=== PATIENT | female | born 1940 | race Caucasian/White ===

== ENCOUNTER 2018-07-25 15:44 | Inpatient (IN) ==
[2018-07-25] MEDS ORDERED: 0.9 % Sodium Chloride 1,000 ML IVC ONE ×2 (16:30→16:32)
[2018-07-25 16:47] LABS: Basophils % 0.3 %; Eosinophils # 0.1 K/mcL (0.0-0.6); Eosinophils % 0.8 %; Hematocrit 38.7 % (35.3-44.9); Hemoglobin 13.5 g/dL (11.5-15.4); Immature Granulocytes % 0.4 % (0-4); Lymphocytes # 0.4 K/mcL (0.6-4.6); Lymphocytes % 4.2 %; Mean Corpuscular HGB Conc 34.9 g/dL (31.6-35.5); Mean Corpuscular Hemoglobin 33.7 pg (28.0-33.3); Mean Corpuscular Volume 96.5 fL (83.0-100.0); Mean Platelet Volume 10.1 fL (9.4-12.4); Monocytes # 0.4 K/mcL (0.0-1.3); Neutrophils # 9.2 K/mcL (1.6-8.9); Platelet Count 269 K/mcL (140-400); Red Blood Count 4.01 M/mcL (3.82-4.97); Red Cell Distribution Width 11.3 % (11.5-14.5); Segmented Neutrophils % 90.3 %; White Blood Count 10.1 K/mcL (4.3-11.1)
--- NOTE | 2018-07-25 16:54 | Emergency Department Note ---
Disposition Clinical Impression: Drug eruption Disposition: Admitted As Inpatient Referrals: Manolo Lara DO [Primary Care Provider] - Time of Disposition: 16:55 General Adult HPI - General Chief complaint: ED Fever Stated complaint: Fever, chills, S/P Surgery Time Seen by Provider: 07/25/18 16:18 Source: patient Limitations: no limitations Nursing Notes Reviewed: Yes Vital Signs Reviewed: Yes - History of Present Illness HPI Narrative: Attestation note: Patient was seen with the emergency medicine resident/nurse practitioner/physician assistant financial accountant/transitional resident/medical student: Dr. Brad Lamas I have personally performed a face to face evaluation on this patient. I have reviewed and agree with history and physical examination patient management and disposition. I was present for the significant portions of the performance and interpretation of procedures and EKGs. Briefly the salient points of the case are as follows: 70-year-old female presents with fever chills or rash. Patient had a left sided ureteral stone retrieval performed percutaneously through interventional radiology this past Wednesday. Patient states she has been feeling chills achy all over not feeling well. Patient was 101 in the emergency department covered with fine rash that is discrete which in its appearance is consistent with possible drug eruption. Patient was taking Macrobid at the time. We will discontinue that. Patient will get IV fluids screening labs imaging with admission anticipated and urologic consultation. Disposition pending Pain Scale: 0 - Related Data Home Medications Medication Instructions Recorded Confirmed Biotin 1 mg PO DAILY 03/03/17 07/21/18 Levothyroxine [Synthroid] 75 mcg PO 0630 03/03/17 07/21/18 Losartan/HCTZ [Hyzaar 50-12.5 1 tab PO BID 03/03/17 07/21/18 Tablet] Multivitamin [One Daily Essential] 1 tab PO DAILY 03/03/17 07/21/18 Trazodone HCl 50 mg PO HS PRN 03/03/17 07/21/18 Turmeric Root Extract [Turmeric] 500 mg PO DAILY 03/03/17 07/21/18 Aspirin [Lo-Dose Aspirin EC] 81 mg PO DAILY 07/21/18 07/21/18 Potassium Chloride [K-Tab ER] 20 meq PO DAILY 07/21/18 07/21/18 Previous Rx's Medication Instructions Recorded Nitrofurantoin Monohyd/M-Cryst 100 mg PO BID #10 capsule 07/23/18 [Macrobid 100 mg Capsule] Allergies Allergy/AdvReac Type Severity Reaction Status Date / Time Cefaclor [From Ceclor] Allergy Rash Verified 03/03/17 10:45 Cortisone Allergy Rash Verified 03/03/17 10:45 hydrocodone Allergy Rash Verified 03/03/17 10:45 methylprednisolone Allergy Rash Verified 03/03/17 10:45 [From Medrol] nitrofurantoin Allergy Rash Verified 03/03/17 10:45 [From Macrobid] Penicillins [PCN] Allergy Rash Verified 03/03/17 10:45 Sulfa (Sulfonamide Allergy Rash Verified 03/03/17 10:45 Antibiotics) Past Medical History - Past Medical History Medical history: Reports: hypertension, kidney stones Surgical history: Reports: cholecystectomy, orthopedic, other Psychiatric history: Reports: no psych history - Social History Smoking Status: Never smoker Smokeless Tobacco Status: No Alcohol use: Reports: none Drug use: Reports: none Physical Exam - General Limitations: no limitations General appearance: alert Course Vital Signs Temperature 100.9 F H 07/25/18 15:52 Pulse Rate 116 07/25/18 15:52 Respiratory Rate 20 07/25/18 15:52 Blood Pressure 122/81 07/25/18 15:52 O2 Sat by Pulse Oximetry 94 07/25/18 15:52 Temperature 100.9 F H 07/25/18 16:43 Pulse Rate 116 07/25/18 16:43 Respiratory Rate 20 07/25/18 16:43 Blood Pressure 122/81 07/25/18 16:43 O2 Sat by Pulse Oximetry 94 07/25/18 16:43 Oxygen Delivery Oxygen Delivery Room Air
[2018-07-25 16:57] LABS: Bilirubin,Urine Negative (Negative); Blood,Urine Large (Negative); Clarity,Urine Cloudy (Clear); Color,Urine Dark Yellow (Yellow); Glucose,Urine (UA) Normal (Normal); Ketones,Urine Trace mg/dL (Negative); Leukocyte Esterase,Urine Trace (Negative); Nitrite,Urine Positive (Negative); Protein,Urine 30 mg/dL (Neg-Trace); Specific Gravity,Urine 1.014 (1.010-1.025); Urobilinogen,Urine Normal (Normal)
[2018-07-25 16:59] LABS: Bacteria,Urine None Seen per hpf (None-Few); Hyaline Casts,Urine None Seen per lpf (None-Few); RBC,Urine TNTC per hpf (0-3); Squamous Epithelial Cell,Urine Many per lpf (None-Few)
--- NOTE | 2018-07-25 16:59 | Emergency Department Note ---
Disposition Clinical Impression: Drug eruption, Ureteral stone, Decreased thyroid stimulating hormone (TSH) level UTI (urinary tract infection) Qualifiers: Urinary tract infection type: acute cystitis Hematuria presence: without hematuria Qualified Code(s): N30.00 - Acute cystitis without hematuria Disposition: Admitted As Inpatient Referrals: Manolo Lara DO [Primary Care Provider] - Forms: ED Satisfaction Letter Time of Disposition: 19:32 Fever HPI - General Chief Complaint: ED Fever Stated Complaint: Fever, chills, S/P Surgery Time Seen by Provider: 07/25/18 16:18 Source: patient Limitations: no limitations Nursing Notes Reviewed: Yes Vital Signs Reviewed: Yes - History of Present Illness HPI Narrative: 70-year-old female presents emergency department with concern for fever, chills, generalized weakness. Patient reports that last she had an obstructive kidney stone extracted. Stated that throughout the weekend she was not feeling too well. She was prescribed Macrobid for home and has been taking that for the last few days. reports rash on back. Patient denies any dysuria, urinary frequency, urgency. She reports that her urine is actually cleared up. She denies any cough. Pt Subjective Complaint: fever, malaise, weakness - Related Data Home Medications Medication Instructions Recorded Confirmed Biotin 1 mg PO DAILY 03/03/17 07/21/18 Levothyroxine [Synthroid] [place] [address]/03/17 07/21/18 Losartan/HCTZ [Hyzaar 50-12.5 1 tab PO BID 03/03/17 07/21/18 Tablet] Multivitamin [One Daily Essential] 1 tab PO DAILY 03/03/17 07/21/18 Trazodone HCl 50 mg PO HS PRN 03/03/17 07/21/18 Turmeric Root Extract [Turmeric] 500 mg PO DAILY 03/03/17 07/21/18 Aspirin [Lo-Dose Aspirin EC] 81 mg PO DAILY 07/21/18 07/21/18 Potassium Chloride [K-Tab ER] 20 meq PO DAILY 07/21/18 07/21/18 Previous Rx's Medication Instructions Recorded Nitrofurantoin Monohyd/M-Cryst 100 mg PO BID #10 capsule 07/23/18 [Macrobid 100 mg Capsule] Allergies Allergy/AdvReac Type Severity Reaction Status Date / Time Cefaclor [From [facility]] Allergy Rash Verified 03/03/17 10:45 Cortisone Allergy Rash Verified 03/03/17 10:45 hydrocodone Allergy Rash Verified 03/03/17 10:45 methylprednisolone Allergy Rash Verified 03/03/17 10:45 [From Medrol] nitrofurantoin Allergy Rash Verified 03/03/17 10:45 [From Macrobid] Penicillins [PCN] Allergy Rash Verified 03/03/17 10:45 Sulfa (Sulfonamide Allergy Rash Verified 03/03/17 10:45 Antibiotics) All systems ED: reviewed and negative except as stated. Review of Systems: As Per HPI Constitutional: Reports: fever, chills, weakness Cardiovascular: Denies: chest pain Respiratory: Denies: cough, dyspnea Gastrointestinal: Reports: abdominal pain. Denies: nausea, vomiting Genitourinary: Denies: urgency, dysuria, frequency Integumentary: Reports: rash Neurological: Denies: headache Fever PMH - Past Medical History Medical history: Reports: hypertension, kidney stones Surgical history: Reports: cholecystectomy, orthopedic, other Psychiatric history: Reports: no psych history - Social History Smoking Status: Never smoker Alcohol use: Reports: none Drug use: Reports: none Physical Exam - General Limitations: no limitations General appearance: alert - Head Head exam: normocephalic - Eye Eye exam: Present: EOMI - ENT ENT exam: mucous membranes moist - Neck Neck exam: Present: trachea midline - Chest Chest inspection: Present: symmetric chest wall rise - Respiratory Respiratory exam: Present: normal lung sounds bilaterally. Absent: respiratory distress, accessory muscle use - Cardiovascular Cardiovascular exam: Present: normal rhythm, tachycardia, normal heart sounds - Abdominal Exam Abdominal exam: Present: soft, tenderness. Absent: distention, guarding, rebound, rigidity Abdominal tenderness: Present: LLQ, moderate - Extremities Exam Extremities exam: Present: normal capillary refill - Back Exam Back exam: Present: other (Morbilliform rash) - Neurological Exam Neurological exam: Present: alert, oriented X3 - Psychiatric Psychiatric exam: Present: normal affect, normal mood - Skin Skin exam: Present: normal color Course Vital Signs Temperature 100.9 F H 07/25/18 15:52 Pulse Rate 116 07/25/18 15:52 Respiratory Rate 20 07/25/18 15:52 Blood Pressure 122/81 07/25/18 15:52 O2 Sat by Pulse Oximetry 94 07/25/18 15:52 Temperature 100.9 F H 07/25/18 16:43 Pulse Rate 94 07/25/18 18:23 Respiratory Rate 16 07/25/18 18:23 Blood Pressure 132/59 07/25/18 18:23 O2 Sat by Pulse Oximetry 100 07/25/18 18:23 Oxygen Delivery Oxygen Delivery Room Air Fever - MDM Narrative Medical decision making narrative: 78-year-old female presented to emergency department with concern for fever, tachycardia. Patient has met SIRS criteria. Patient will be administered 30 mL/kg and fluids. Obtain lactic acid, blood cultures, CBC, CMP, lipase. Patient had moderate left lower quadrant tenderness upon abdominal exam. We will obtain CT scan of abdomen and pelvis without contrast. Patient had a urinalysis with positive nitrites, leukocyte esterase, blood. I spoke with Dr. Lieberman who stated that he would follow her in the hospital, or manage her sooner if needed. We will currently pending a CT scan at that time. CT scan of the abdomen and pelvis revealed obstructive [address] Lieberman will take patient to surgery. Patient was offered pain medication besides Tylenol, but stated that she did not want it. Heart rate improved to 94 at time of surgery after administration of 2 L of fluids. Lactic acid was normal, and there was no leukocytosis, all of her labs benign. Patient was also administered IV Levaquin after discussion with pharmacist with extensive review of allergy list. In regards to the patient's rash, most likely secondary to drug eruption. Patient with known allergy to Macrobid and was prescribed this medication. We will request close observation of this rash see of drug withdrawal improves it. Patient accepted by Dr. Sevilla. Abdomen/Pelvis CT 07/25/18 16:31 IMPRESSION: A large stone that was present in the left renal pelvis on the comparison exam is no longer present. There is now a 4 mm stone in the distal left ureter with moderate obstructive uropathy. There is peripelvic fat stranding suggesting pyelitis, with bubbles of gas in the left pelvicaliceal system which may be due to an infection by a gas producing organism or recent instrumentation. This may account for gas in the urinary bladder is well D/ / Deven Powell MD / Deven Powell MD Interpreting Provider: Deven Powell MD Chest X-Ray 07/25/18 16:59 IMPRESSION: No acute cardiopulmonary disease. D/ / Dl Hendrix MD / Dl Hendrix MD Interpreting Provider: Dl Hendrix MD - Lab Data Result diagrams: 07/25/18 16:27 07/25/18 16:27 Lab Results 07/25/18 07/25/18 07/25/18 Range/Units 16:27 16:27 16:27 WBC 10.1 (4.3-11.1) K/mcL RBC 4.01 (3.82-4.97) M/mcL Hgb 13.5 D (11.5-15.4) g/dL Hct 38.7 (35.3-44.9) % MCV 96.5 (83.0-100.0) fL MCH 33.7 H (28.0-33.3) pg MCHC 34.9 (31.6-35.5) g/dL RDW 11.3 L (11.5-14.5) % Plt Count 269 (140-400) K/mcL MPV 10.1 (9.4-12.4) fL Immature Gran % 0.4 (0-4) % Seg Neutrophils % 90.3 % Lymphocytes % 4.2 % Monocytes % 4.0 % Eosinophils % 0.8 % Basophils % 0.3 % Neutrophils # 9.2 H (1.6-8.9) K/mcL Lymphocytes # 0.4 L (0.6-4.6) K/mcL Monocytes # 0.4 (0.0-1.3) K/mcL Eosinophils # 0.1 (0.0-0.6) K/mcL Basophils # 0.0 (0.0-0.2) K/mcL Sodium 136 (136-145) mEq/L Potassium 3.6 (3.5-5.1) mEq/L Chloride 102 (98-107) mEq/L Carbon Dioxide 27 (23-29) mEq/L BUN 12 (8-23) mg/dL Creatinine 0.74 (0.60-1.20) mg/dL Est GFR ( Amer) > 60 (> 60) Est GFR (Non-Af Amer) > 60 (> 60) BUN/Creatinine Ratio 16 (6-26) Glucose 118 H (70-105) mg/dL Calculated Osmolality 283 (280-300) Lactic Acid 1.2 (0.5-2.2) mmol/L Calcium 9.8 (8.6-10.3) mg/dL Total Bilirubin 1.1 H (0.3-1.0) mg/dL AST 29 (13-39) Units/L ALT 34 (7-52) Units/L Alkaline Phosphatase 57 (34-104) Units/L Serum Total Protein 7.3 (6.4-8.9) g/dL Albumin 4.2 (3.5-5.7) g/dL Globulin 3.1 (2.4-3.5) g/dL Albumin/Globulin Ratio 1.4 (1.1-2.2) Lipase 18 (11-82) Units/L TSH 0.147 L (0.340-5.600) mcIU/mL Urine Color (Yellow) Urine Clarity (Clear) Urine pH (5.0-8.0) pH Units Ur Specific [place] (1.010-1.025) Urine Protein (Neg-Trace) mg/dL Urine Glucose (UA) (Normal) mg/dL Urine Ketones (Negative) mg/dL Urine Blood (Negative) Urine Nitrite (Negative) Urine Bilirubin (Negative) Urine Urobilinogen (Normal) mg/dL Ur Leukocyte Esterase (Negative) Urine Microscopic RBC (0-3) per hpf Urine Microscopic WBC (0-3) per hpf Ur Squamous Epith Cells (None-Few) per lpf Urine Bacteria (None-Few) per hpf Hyaline Casts (None-Few) per lpf Ur Culture Indicated? (NO) 07/25/18 Range/Units 16:40 WBC (4.3-11.1) K/mcL RBC (3.82-4.97) M/mcL Hgb (11.5-15.4) g/dL Hct (35.3-44.9) % MCV (83.0-100.0) fL MCH (28.0-33.3) pg MCHC (31.6-35.5) g/dL RDW (11.5-14.5) % Plt Count (140-400) K/mcL MPV (9.4-12.4) fL Immature Gran % (0-4) % Seg Neutrophils % % Lymphocytes % % Monocytes % % Eosinophils % % Basophils % % Neutrophils # (1.6-8.9) K/mcL Lymphocytes # (0.6-4.6) K/mcL Monocytes # (0.0-1.3) K/mcL Eosinophils # (0.0-0.6) K/mcL Basophils # (0.0-0.2) K/mcL Sodium (136-145) mEq/L Potassium (3.5-5.1) mEq/L Chloride (98-107) mEq/L Carbon Dioxide (23-29) mEq/L BUN (8-23) mg/dL Creatinine (0.60-1.20) mg/dL Est GFR ( Amer) (> 60) Est GFR (Non-Af Amer) (> 60) BUN/Creatinine Ratio (6-26) Glucose (70-105) mg/dL Calculated Osmolality (280-300) Lactic Acid (0.5-2.2) mmol/L Calcium (8.6-10.3) mg/dL Total Bilirubin (0.3-1.0) mg/dL AST (13-39) Units/L ALT (7-52) Units/L Alkaline Phosphatase (34-104) Units/L Serum Total Protein (6.4-8.9) g/dL Albumin (3.5-5.7) g/dL Globulin (2.4-3.5) g/dL Albumin/Globulin Ratio (1.1-2.2) Lipase (11-82) Units/L TSH (0.340-5.600) mcIU/mL Urine Color Dark Yellow (Yellow) Urine Clarity Cloudy A (Clear) Urine pH 7.0 (5.0-8.0) pH Units Ur Specific [place] 1.014 (1.010-1.025) Urine Protein 30 H (Neg-Trace) mg/dL Urine Glucose (UA) Normal (Normal) mg/dL Urine Ketones Trace H (Negative) mg/dL Urine Blood Large H (Negative) Urine Nitrite Positive A (Negative) Urine Bilirubin Negative (Negative) Urine Urobilinogen Normal (Normal) mg/dL Ur Leukocyte Esterase Trace H (Negative) Urine Microscopic RBC TNTC H (0-3) per hpf Urine Microscopic WBC 5-15 H (0-3) per hpf Ur Squamous Epith Cells Many H (None-Few) per lpf Urine Bacteria None Seen (None-Few) per hpf Hyaline Casts None Seen (None-Few) per lpf Ur Culture Indicated? YES A (NO)
[2018-07-25 17:04] LABS: Alanine Aminotransferase 34 Units/L (7-52); Albumin 4.2 g/dL (3.5-5.7); Albumin/Globulin Ratio 1.4 (1.1-2.2); Alkaline Phosphatase 57 Units/L (34-104); Aspartate Amino Transferase 29 Units/L (13-39); BUN/Creatinine Ratio 16 (6-26); Bilirubin,Total 1.1 mg/dL (0.3-1.0); Blood Urea Nitrogen 12 mg/dL (8-23); Calcium 9.8 mg/dL (8.6-10.3); Carbon Dioxide 27 mEq/L (23-29); Chloride 102 mEq/L (98-107); Globulin 3.1 g/dL (2.4-3.5); Glucose 118 mg/dL (70-105); Lipase 18 Units/L (11-82); Osmolality,Calculated 283 (280-300); Potassium 3.6 mEq/L (3.5-5.1); Sodium 136 mEq/L (136-145); Total Protein 7.3 g/dL (6.4-8.9); eGFR For African Americans > 60 (> 60); eGFR For Non-African Americans > 60 (> 60)
[2018-07-25 17:24] LABS: Thyroid Stimulating Hormone 0.147 mcIU/mL (0.340-5.600)
[2018-07-25] MEDS ORDERED: Levofloxacin 750 MG/150 ML 750 MG/150 ML BAG IVPB ONE (18:20)
--- NOTE | 2018-07-25 18:27 | Anesthesia Evaluation PreOp ---
Date of Encounter: 07/25/18 Time of Encounter: 18:25 - Past History Planned Operation: Cystoscopy/Stent/USE Cardiac History: HTN, Hyperlipidemia, Other (moderate ) Pulmonary History: Denies Any Significant HX COUNT TEAM MEMBER History: Denies Any Significant HX Other Medical History: Thyroid Anesthesia History: No Prior Anesthetic Complications : No Alcohol Use: none Drug use: none Medications and Allergies Biotin 1 mg PO DAILY 03/03/17 [History] Levothyroxine [Synthroid] 75 mcg PO 0630 03/03/17 [History] Losartan/HCTZ [Hyzaar 50-12.5 Tablet] 1 tab PO BID 03/03/17 [History] Multivitamin [One Daily Essential] 1 tab PO DAILY 03/03/17 [History] Trazodone HCl 50 mg PO HS PRN 03/03/17 [History] Turmeric Root Extract [Turmeric] 500 mg PO DAILY 03/03/17 [History] Aspirin [Lo-Dose Aspirin EC] 81 mg PO DAILY 07/21/18 [History] Potassium Chloride [K-Tab ER] 20 meq PO DAILY 07/21/18 [History] Nitrofurantoin Monohyd/M-Cryst [Macrobid 100 mg Capsule] 100 mg PO BID #10 capsule 07/23/18 [Rx] Allergy/AdvReac Type Severity Reaction Status Date / Time Cefaclor [From Ceclor] Allergy Rash Verified 03/03/17 10:45 Cortisone Allergy Rash Verified 03/03/17 10:45 hydrocodone Allergy Rash Verified 03/03/17 10:45 methylprednisolone Allergy Rash Verified 03/03/17 10:45 [From Medrol] nitrofurantoin Allergy Rash Verified 03/03/17 10:45 [From Macrobid] Penicillins [PCN] Allergy Rash Verified 03/03/17 10:45 Sulfa (Sulfonamide Allergy Rash Verified 03/03/17 10:45 Antibiotics) - Meds/Allergy Pre-op Review Medications Reviewed: Yes Allergies Reviewed: Yes Beta Blockers on Current Med List: No Anesthesia Results - Labs 07/25/18 16:27 07/25/18 16:27 Laboratory Tests 07/21/18 07/25/18 07/25/18 10:09 16:27 16:27 Hgb 13.5 D Hct 38.7 Plt Count 269 PT 11.4 INR 1.0 Sodium 136 Potassium 3.6 BUN 12 Creatinine 0.74 Anesthesia Exam O2 Sat Height 1.63 m Height 1.63 m Weight 72.665 kg Weight 72.665 kg O2 Sat by Pulse Oximetry 100 O2 Sat by Pulse Oximetry 94 O2 Sat by Pulse Oximetry 94 Vital Signs Temp Pulse Resp BP Pulse Ox 100.9 F H 116 20 122/81 94 07/25/18 15:52 07/25/18 15:52 07/25/18 15:52 07/25/18 15:52 07/25/18 15:52 Height: 5'4 Weight: 160 lbs NPO (# of Hours): MN Pain Scale: 0 - HEENT Pupil (Motor): Pupils equal, EOMI Mallampati: II Teeth: Normal Oral Opening: Greater than 3 - COUNT TEAM MEMBER LOC: Oriented COUNT TEAM MEMBER Motor: Normal RUE, Normal LUE, Normal RLE, Normal LLE, Normal Face COUNT TEAM MEMBER Sensory: Normal: RUE, LUE, RLE, LLE, Face - Cardiac Rhythm: Regular Murmur: None JVD: No Carotid Bruit: No - Pulmonary Breath Sounds: bilateral Clear Respiratory Effort: Symmetrical Anesthesia Assess/Plan ASA Score: 2 Level of consciousness: Cooperative, Oriented Anesthetic Plan: General Autologous Blood: No Monitoring Plan: Standard Monitors Recovery Plan: PACU (Discussed GA, agrees to proceed)
--- NOTE | 2018-07-25 18:39 | Urology - Consult Note ---
Date of Encounter: 07/25/18 Time of Encounter: 18:37 - Assessment and Plan (1) Left ureteral stone Current Visit: Yes Status: Acute Assessment and plan: Patient taken operating room today for left ureteroscopy and left ureteral stent placement. (2) UTI (urinary tract infection) Current Visit: Yes Status: Acute Assessment and plan: We will place patient on broad-spectrum antimicrobial coverage. Qualifiers: Urinary tract infection type: acute cystitis Hematuria presence: without hematuria Qualified Code(s): N30.00 - Acute cystitis without hematuria Urology CN:HPI Consult date: 07/25/18 Reason for consult Urology: Other (uti with sepsis) Requesting physician: Brad Lamas History of present illness: Kami is a 78-year-old female who recently underwent a left percutaneous nephrolithotomy. Patient felt poorly afterwards. She came to the emergency department this past Wednesday and was treated for UTI. Patient then presented back to the emergency department today where CT scan was performed which showed a left distal ureteral stone as well as air within the left renal collecting system. Patient with positive fever and emergency department. No leukocytosis. Past Med Surg Social Fam HX - Past Medical History Medical history: hypertension, kidney stones Additional medical history: hypothyroidism, OA, Insomnia, Osteopenia, kidney stones Psychiatric history: no psych history - Past Surgical History Surgical History: cholecystectomy, orthopedic, other Additional surgical history: tubal ligation. lithotripsy. laminectomy. oopherectomy. D&C. prolapsed bladder repair - Social History Smoking Status: Never smoker Smokeless Tobacco Status: No Alcohol use: none Drug use: none - Family History Mother Hx Family Cardiac Disorders: Yes (HTN) Hx Family Endocrine Disorder: Yes (DM) Father Hx Family Respiratory Disorders: Yes (COPD) Medications and Allergies Biotin 1 mg PO DAILY 03/03/17 [History] Levothyroxine [Synthroid] 75 mcg PO 0630 03/03/17 [History] Losartan/HCTZ [Hyzaar 50-12.5 Tablet] 1 tab PO BID 03/03/17 [History] Multivitamin [One Daily Essential] 1 tab PO DAILY 03/03/17 [History] Trazodone HCl 50 mg PO HS PRN 03/03/17 [History] Turmeric Root Extract [Turmeric] 500 mg PO DAILY 03/03/17 [History] Aspirin [Lo-Dose Aspirin EC] 81 mg PO DAILY 07/21/18 [History] Potassium Chloride [K-Tab ER] 20 meq PO DAILY 07/21/18 [History] Nitrofurantoin Monohyd/M-Cryst [Macrobid 100 mg Capsule] 100 mg PO BID #10 capsule 07/23/18 [Rx] Allergy/AdvReac Type Severity Reaction Status Date / Time Cefaclor [From Ceclor] Allergy Rash Verified 03/03/17 10:45 Cortisone Allergy Rash Verified 03/03/17 10:45 hydrocodone Allergy Rash Verified 03/03/17 10:45 methylprednisolone Allergy Rash Verified 03/03/17 10:45 [From Medrol] nitrofurantoin Allergy Rash Verified 03/03/17 10:45 [From Macrobid] Penicillins [PCN] Allergy Rash Verified 03/03/17 10:45 Sulfa (Sulfonamide Allergy Rash Verified 03/03/17 10:45 Antibiotics) Review of Systems - Constitutional chills, fever(s) - EENT Nose, mouth and throat: no dizziness - Cardiovascular no chest pain - Respiratory no cough - Gastrointestinal no abdominal pain, no nausea, no vomiting Exam Initial Vital Signs Temp Pulse Resp BP Pulse Ox 100.9 F H 116 20 122/81 94 07/25/18 15:52 07/25/18 15:52 07/25/18 15:52 07/25/18 15:52 07/25/18 15:52 - General physical appearance Present: well developed, well nourished - Eyes Present: PERRL - Neck Present: no masses - Respiratory Present: normal respiratory effort Urology Results - Labs 07/25/18 16:27 07/25/18 16:27 Abnormal lab results MCH 33.7 pg (28.0-33.3) H 07/25/18 16:27 RDW 11.3 % (11.5-14.5) L 07/25/18 16:27 9.2 K/mcL (1.6-8.9) H 07/25/18 16:27 0.4 K/mcL (0.6-4.6) L 07/25/18 16:27 Glucose 118 mg/dL (70-105) H 07/25/18 16:27 1.1 mg/dL (0.3-1.0) H 07/25/18 16:27 TSH 0.147 mcIU/mL (0.340-5.600) L 07/25/18 16:27 Cloudy (Clear) A 07/25/18 16:40 30 mg/dL (Neg-Trace) H 07/25/18 16:40 Trace mg/dL (Negative) H 07/25/18 16:40 Large (Negative) H 07/25/18 16:40 Positive (Negative) A 07/25/18 16:40 Ur Leukocyte Esterase Trace (Negative) H 07/25/18 16:40 TNTC per hpf (0-3) H 07/25/18 16:40 5-15 per hpf (0-3) H 07/25/18 16:40 Ur Squamous Epith Cells Many per lpf (None-Few) H 07/25/18 16:40 Ur Culture Indicated? YES (NO) A 07/25/18 16:40 Diabetes panel 07/25/18 Range/Units 16:27 Sodium 136 (136-145) mEq/L Potassium 3.6 (3.5-5.1) mEq/L Chloride 102 (98-107) mEq/L Carbon Dioxide 27 (23-29) mEq/L BUN 12 (8-23) mg/dL Creatinine 0.74 (0.60-1.20) mg/dL Glucose 118 H (70-105) mg/dL Calcium 9.8 (8.6-10.3) mg/dL AST 29 (13-39) Units/L ALT 34 (7-52) Units/L Alkaline Phosphatase 57 (34-104) Units/L Albumin 4.2 (3.5-5.7) g/dL Thyroid panel 07/25/18 Range/Units 16:27 TSH 0.147 L (0.340-5.600) mcIU/mL Calcium panel 07/25/18 Range/Units 16:27 Calcium 9.8 (8.6-10.3) mg/dL Albumin 4.2 (3.5-5.7) g/dL Pituitary panel 07/25/18 Range/Units 16:27 Sodium 136 (136-145) mEq/L Potassium 3.6 (3.5-5.1) mEq/L Chloride 102 (98-107) mEq/L Carbon Dioxide 27 (23-29) mEq/L BUN 12 (8-23) mg/dL Creatinine 0.74 (0.60-1.20) mg/dL Glucose 118 H (70-105) mg/dL Calcium 9.8 (8.6-10.3) mg/dL TSH 0.147 L (0.340-5.600) mcIU/mL Adrenal panel 07/25/18 Range/Units 16:27 Sodium 136 (136-145) mEq/L Potassium 3.6 (3.5-5.1) mEq/L Chloride 102 (98-107) mEq/L Carbon Dioxide 27 (23-29) mEq/L BUN 12 (8-23) mg/dL Creatinine 0.74 (0.60-1.20) mg/dL Glucose 118 H (70-105) mg/dL Calcium 9.8 (8.6-10.3) mg/dL Total Bilirubin 1.1 H (0.3-1.0) mg/dL AST 29 (13-39) Units/L ALT 34 (7-52) Units/L Alkaline Phosphatase 57 (34-104) Units/L Albumin 4.2 (3.5-5.7) g/dL All other labs normal. Consult Discharge Plan - Plan Referrals: Manolo Lara DO [Primary Care Provider] -
[2018-07-25] MEDS ORDERED: Gentamicin 80 MG/2 ML VIAL ONE (18:42)
[2018-07-25] MEDS ORDERED: Ondansetron 4 MG/2 ML VIAL ONE (18:43)
[2018-07-25] MEDS ORDERED: *HR* FentaNYL (PF) 100 MCG/2 ML VIAL ONE (18:43)
[2018-07-25] MEDS ORDERED: *HR* Propofol 200 MG/20 ML VIAL IVP ONE (18:43)
[2018-07-25] MEDS ORDERED: *HR* Succinylcholine 200 MG/10 ML VIAL IVP ONE (18:43)
[2018-07-25] MEDS ORDERED: *HR* Midazolam HCl 2 MG/2 ML VIAL ONE (18:43)
[2018-07-25] MEDS ORDERED: Dexamethasone 4 MG/ML VIAL ONE (18:43)
[2018-07-25] MEDS ORDERED: *HR* Rocuronium Bromide 50 MG/5 ML VIAL ONE (18:43)
[2018-07-25] MEDS ORDERED: Lidocaine -MPF 2% 2 ML VIAL ONE (18:43)
[2018-07-25] MEDS ORDERED: *HR* PHENYLEPHRINE 1,000 MCG/10 ML SYRINGE IVP ONE (19:02)
[2018-07-25] MEDS ORDERED: Ondansetron 4 MG/2 ML VIAL IVP ONE (19:09)
[2018-07-25] MEDS ORDERED: *HR* OxyCODONE Immed Rel 5 MG TABLET PO PRN ×2 (19:09→22:39)
--- NOTE | 2018-07-25 19:15 | Operative Note ---
Date of procedure: 07/25/18 Pre-op diagnosis: left ureteral stone and sepsis Post-op diagnosis: same Procedure: Left ureteroscopic basket retrieval of stone, left 4.8 x 26 cm ureteral stent placement Anesthesia: GETA Surgeon: Tim Lieberman Was there an commercial lending assistant present: No Estimated blood loss (cc): 0 Specimen: Left ureteral stone not sent for analysis Condition: stable Disposition: PACU Procedure in Detail: Patient was prepped and draped in normal sterile fashion. Timeout procedure performed. I then inserted the semirigid ureteroscope and the patient's bladder. I was able to cannulate the left ureteral orifice were encountered a distal 3-4 mm stone. I then placed a Glidewire into the patient's left kidney. Alongside the wire I was then able to use the basket device and was able to remove the stone in its entirety. I then placed a 4.8 x 26 and meter stent with good curl seen in the left kidney and in the bladder. Strings were left for easy removal in 2-3 days.
[2018-07-25] MEDS ORDERED: Naloxone 0.4 MG/ML INJ IVP PRN (20:53)
[2018-07-25] MEDS ORDERED: *HR* HYDROcodone/Acet 5/325 mg TABLET PO PRN (20:55)
[2018-07-25] MEDS ORDERED: *HR* Belladonna Alkaloids/Opium 30 MG RECTAL SUPPOSITORY RC PRN (20:56)
[2018-07-25] MEDS ORDERED: Ringers Solution, Lactated 1,000 ML IVC SCH (21:00)
--- NOTE | 2018-07-25 21:10 | Anesthesia Evaluation Post Op ---
Date of Encounter: 07/25/18 Time of Encounter: 21:00 - Vital Signs Vital Signs: Vital Signs/O2 Sat/Glucose, Most Current Temp Pulse Resp BP Pulse Ox 07/25/18 20:47 98.2 F 77 18 102/55 95 07/25/18 20:32 76 16 109/57 93 07/25/18 20:17 97.7 F 79 16 91/47 93 07/25/18 20:07 78 16 89/49 94 07/25/18 19:57 76 16 90/52 95 07/25/18 19:47 99.0 F 84 16 95/57 95 07/25/18 19:37 79 18 96/52 100 07/25/18 19:27 81 18 94/55 100 07/25/18 19:17 99.2 F 82 20 87/50 100 07/25/18 18:23 94 16 132/59 100 - Lungs Lungs: Clear Ascult./Percussion - Airway Airway: Non-obstructed - Cardiovascular Regular Rate - Mental Status Mental Status: Alert & Oriented, Answers Appropriately - Pain Pain Scale: 0 - Nausea Vomiting Nausea Vomiting: Not Present - Hydration Hydration: Ice chips - Discharge PostOp Status: Transfer Patient to floor
--- NOTE | 2018-07-25 21:36 | Internal Med History&Physical ---
Date of Encounter: 07/25/18 Time of Encounter: 21:35 Internal Medicine - H&P: HPI Chief complaint: malaise Admitted From: Home Plans for Post Hospital Care: Home History of present illness: Kami Newby is a 78 year old woman who underwent left percutaneous nephrolithotomy on 07/21/18 with nephrostomy tube placement and no surgical complications encountered in immediacy. The tube was removed on postoperative day one without incident and discharged. She came to the emergency room the following day with complaints of nausea, vomiting and hematuria. She was found hypokalemic at 2.9 and her urinalysis was concerning for an infection so she was discharged home with a 5 day course of nitrofurantoin despite a documented allergy to this in the system. She presents to the emergency today complaining of fever, chills, generalized weakness and a new onset rash on her back. She was found hemodynamically stable, lab work within normal limits but with a UA showing nitrites/LE/RBCs. A CT scan showed a 4mm obstructive stone in the distal left ureter with moderate obstructive uropathy, peripelvic fat stranding suggesting pyelitis and bubbles of as in the left pelvicaliceal system. This more likely represents the recent instrumentation more so than an infection by a gas-producing organism based on my interpretation. She was taken to the OR for left ureteroscopic basket retrieval of stone and ureteral stent placement. She is now admitted for further care. Vitals: Reviewed General: Developed woman lying comfortably in bed in no acute distress. Skin: Red non-blanching macular rash noted on lower back and abdomen. HEENT: Dry mucous membranes. Mild conjunctivae pallor. Neck: No lymphadenopathy. No JVD. No carotid bruits. No palpable thyroid. Chest: Normal thoracic expansion. Normal breath sounds. Clear to auscultation. Heart: Normal S1 & S2; rhythmic. No rubs or murmurs. Abdomen: Non-distended, soft and non-tender to palpation. No peritoneal reaction. Extremities: No clubbing, cyanosis or edema. No calf tenderness. Normal distal pulses. Neurological: Awake, alert and oriented to person, place and time. No focal deficits. Psych: Affect appropriate. Assessment/Plan 1. Complicated UTI: Given the concomitant lithiasis with obstruction leading to surgical intervention. Will keep her on systemic antibiotics in the interim pending further culture data. 2. Left hydronephrosis: Stone has now been removed successfully. Will continue to be seen by urology. 3. Drug hypersensitivity rash: She has a listed allergy as a rash yet was still given this medication. She is currently asymptomatic as it is not bothering her or seemingly spreading. Will provide topical steroids, antihistamines and soothing agents as needed. 4. Hypertension: Will resume home medications once reconciled. Past Med Surg Social Fam HX - Past Medical History Medical history: hypertension, kidney stones Additional medical history: hypothyroidism, OA, Insomnia, Osteopenia, kidney stones Psychiatric history: no psych history - Past Surgical History Surgical History: cholecystectomy, orthopedic, other Additional surgical history: tubal ligation. lithotripsy. laminectomy. oopherectomy. D&C. prolapsed bladder repair - Social History Smoking Status: Never smoker Smokeless Tobacco Status: No Alcohol use: none Drug use: none - Family History Mother Hx Family Cardiac Disorders: Yes (HTN) Hx Family Endocrine Disorder: Yes (DM) Father Hx Family Respiratory Disorders: Yes (COPD) Internal Medicine - H&P: Meds Biotin 1 mg PO DAILY 03/03/17 [History] Levothyroxine [Synthroid] 75 mcg PO 0630 03/03/17 [History] Losartan/HCTZ [Hyzaar 50-12.5 Tablet] 1 tab PO BID 03/03/17 [History] Multivitamin [One Daily Essential] 1 tab PO DAILY 03/03/17 [History] Trazodone HCl 50 mg PO HS PRN 03/03/17 [History] Turmeric Root Extract [Turmeric] 500 mg PO DAILY 03/03/17 [History] Aspirin [Lo-Dose Aspirin EC] 81 mg PO DAILY 07/21/18 [History] Potassium Chloride [K-Tab ER] 20 meq PO DAILY 07/21/18 [History] Nitrofurantoin Monohyd/M-Cryst [Macrobid 100 mg Capsule] 100 mg PO BID #10 capsule 07/23/18 [Rx] Allergy/AdvReac Type Severity Reaction Status Date / Time Cefaclor [From [facility]] Allergy Rash Verified 03/03/17 10:45 Cortisone Allergy Rash Verified 03/03/17 10:45 hydrocodone Allergy Rash Verified 03/03/17 10:45 methylprednisolone Allergy Rash Verified 03/03/17 10:45 [From Medrol] nitrofurantoin Allergy Rash Verified 03/03/17 10:45 [From Macrobid] Penicillins [PCN] Allergy Rash Verified 03/03/17 10:45 Sulfa (Sulfonamide Allergy Rash Verified 03/03/17 10:45 Antibiotics) All Systems PM: A 10-system review of systems was performed and is negative for pertinent findings except as documented above in the HPI. - Constitutional Vitals: Temp Pulse Resp BP Pulse Ox 98.2 F 77 18 102/55 95 07/25/18 20:47 07/25/18 20:47 07/25/18 20:47 07/25/18 20:47 07/25/18 20:47 Exam: . Internal Med - H&P Results - Labs CBC & Chem 7: 07/25/18 16:27 07/25/18 16:27 Labs: Short CBC 07/25/18 Range/Units 16:27 WBC 10.1 (4.3-11.1) K/mcL Hgb 13.5 D (11.5-15.4) g/dL Hct 38.7 (35.3-44.9) % Plt Count 269 (140-400) K/mcL Neutrophils # 9.2 H (1.6-8.9) K/mcL BMP 07/25/18 16:27 Sodium 136 Potassium 3.6 Chloride 102 Carbon Dioxide 27 BUN 12 Creatinine 0.74 Glucose 118 H Calcium 9.8 Liver Function 07/25/18 Range/Units 16:27 Total Bilirubin 1.1 H (0.3-1.0) mg/dL AST 29 (13-39) Units/L ALT 34 (7-52) Units/L Alkaline Phosphatase 57 (34-104) Units/L Albumin 4.2 (3.5-5.7) g/dL Urine 07/25/18 Range/Units 16:40 Urine Color Dark Yellow (Yellow) Urine Clarity Cloudy A (Clear) Urine pH 7.0 (5.0-8.0) pH Units Ur Specific [place] 1.014 (1.010-1.025) Urine Protein 30 H (Neg-Trace) mg/dL Urine Glucose (UA) Normal (Normal) mg/dL - Impressions ITS Impressions Fluoroscopy 07/25/18 00:00 IMPRESSION: Intraprocedural fluoroscopic spot images as above. See separate procedure report for more information. D/ / Micaela Majano MD / Micaela Majano MD Interpreting Provider: Micaela Majano MD Abdomen/Pelvis CT 07/25/18 16:31 IMPRESSION: A large stone that was present in the left renal pelvis on the comparison exam is no longer present. There is now a 4 mm stone in the distal left ureter with moderate obstructive uropathy. There is peripelvic fat stranding suggesting pyelitis, with bubbles of gas in the left pelvicaliceal system which may be due to an infection by a gas producing organism or recent instrumentation. This may account for gas in the urinary bladder is well D/ / Deven Powell MD / Deven Powell MD Interpreting Provider: Deven Powell MD Chest X-Ray 07/25/18 16:59 IMPRESSION: No acute cardiopulmonary disease. D/ / Dl Hendrix MD / Dl Hendrix MD Interpreting Provider: Dl Hendrix MD - Time Spent With Patient Total time spent is greater than 50% in coordination of care (as documented) at patient's floor/unit and/or counseling patient: Greater than 35 minutes
[2018-07-25] MEDS ORDERED: Acetaminophen 325 MG TABLET PO PRN (22:37)
[2018-07-25] MEDS ORDERED: traMADol 50 MG TABLET PO PRN (22:40)
[2018-07-25] MEDS ORDERED: Ondansetron 4 MG/2 ML VIAL IVP PRN (22:41)
[2018-07-25] MEDS: *HR* Heparin 5,000 UNIT/ML VIAL SQ SCH (22:57)
[2018-07-26] MEDS: Hyoscyamine SL 0.125 MG TAB.SUBL SL PRN ×2 (01:59→19:29)
[2018-07-26] MEDS: traZODone 50 MG TABLET PO PRN (02:02)
[2018-07-26 05:17] LABS: Basophils % 0.1 %; Hematocrit 34.1 % (35.3-44.9); Immature Granulocytes % 0.4 % (0-4); Lymphocytes # 0.4 K/mcL (0.6-4.6); Lymphocytes % 5.7 %; Mean Corpuscular HGB Conc 34.3 g/dL (31.6-35.5); Mean Corpuscular Hemoglobin 33.1 pg (28.0-33.3); Mean Corpuscular Volume 96.3 fL (83.0-100.0); Mean Platelet Volume 9.7 fL (9.4-12.4); Monocytes # 0.1 K/mcL (0.0-1.3); Monocytes % 1.1 %; Neutrophils # 6.7 K/mcL (1.6-8.9); Platelet Count 249 K/mcL (140-400); Red Blood Count 3.54 M/mcL (3.82-4.97); Red Cell Distribution Width 11.1 % (11.5-14.5); Segmented Neutrophils % 92.7 %; White Blood Count 7.2 K/mcL (4.3-11.1)
[2018-07-26 05:29] LABS: Hemoglobin 11.7 g/dL (11.5-15.4)
[2018-07-26 05:38] LABS: BUN/Creatinine Ratio 24 (6-26); Blood Urea Nitrogen 13 mg/dL (8-23); Calcium 8.9 mg/dL (8.6-10.3); Carbon Dioxide 24 mEq/L (23-29); Chloride 109 mEq/L (98-107); Glucose 161 mg/dL (70-105); Osmolality,Calculated 292 (280-300); Potassium 3.7 mEq/L (3.5-5.1); Sodium 139 mEq/L (136-145); eGFR For African Americans > 60 (> 60); eGFR For Non-African Americans > 60 (> 60)
[2018-07-26] MEDS: *HR* Heparin 5,000 UNIT/ML VIAL SQ SCH ×3 (06:01→21:59)
[2018-07-26] MEDS: Multivit/Ca/Min/Fe/FA 1 TAB TABLET PO SCH (08:14)
[2018-07-26] MEDS: Aspirin Enteric Coated 81 MG Tablet PO SCH (08:15)
[2018-07-26] MEDS: Losartan/HCTZ 50-12.5 TABLET PO SCH (08:15)
[2018-07-26] MEDS: Levofloxacin 500 MG/100 ML 500 MG/100 ML BAG IVPB SCH (08:19)
--- NOTE | 2018-07-26 09:19 | Urology Progress Note ---
<Gilda Shaw N - Last Filed: 07/26/18 09:17> Date of Encounter: 07/26/18 Time of Encounter: 08:20 - Assessment and Plan (1) Left ureteral stone Current Visit: Yes Status: Acute Assessment and plan: Patient is a 78-year-old female who presents one day status post left ureteroscopic basket retrieval of stone, left 4.8 x 26 cm ureteral stent placement and status post left PCNL on 07/21/18. Patient is recovering well postoperatively. We are awaiting final urine culture and sensitivity. (2) UTI (urinary tract infection) Current Visit: Yes Status: Acute Assessment and plan: Patient is a 78-year-old female who presents with a urinary tract infection. Vital signs are stable and afebrile. Urine culture is pending. Patient is receiving IV Levaquin. Qualifiers: Urinary tract infection type: acute cystitis Hematuria presence: without hematuria Qualified Code(s): N30.00 - Acute cystitis without hematuria Progress Note Subjective: feels better Narrative: POD #1. Patient seen and examined standing in room in no apparent distress. Patient is tolerating normal diet without nausea or vomiting. Patient states pain is well-controlled, and she denies any fever, chills, flank pain or incontinence. Patient reports continued urinary frequency and urgency. Objective Initial Vital Signs Temp Pulse Resp BP Pulse Ox 100.9 F H 116 20 122/81 94 07/25/18 15:52 07/25/18 15:52 07/25/18 15:52 07/25/18 15:52 07/25/18 15:52 - General physical appearance Present: well developed, no distress, no pain - Respiratory Present: normal expansion, normal respiratory effort - Abdomen Present: soft, non tender. Absent: distended - Genitourinary Present: other (no cvat ) - Integumentary Present: no abnormal pigmentation, other (flat, erythematous rash on back and torso ). Absent: no rash - Musculoskeletal Present: normal posture - Psychiatric Present: oriented to time, oriented to person, oriented to place, speech is normal, memory intact - Labs 07/26/18 05:06 07/26/18 05:06 Diabetes panel 07/25/18 07/26/18 Range/Units 16:27 05:06 Sodium 136 139 (136-145) mEq/L Potassium 3.6 3.7 (3.5-5.1) mEq/L Chloride 102 109 H (98-107) mEq/L Carbon Dioxide 27 24 (23-29) mEq/L BUN 12 13 (8-23) mg/dL Creatinine 0.74 0.55 L (0.60-1.20) mg/dL Glucose 118 H 161 H (70-105) mg/dL Calcium 9.8 8.9 (8.6-10.3) mg/dL AST 29 (13-39) Units/L ALT 34 (7-52) Units/L Alkaline Phosphatase 57 (34-104) Units/L Albumin 4.2 (3.5-5.7) g/dL Thyroid panel 07/25/18 Range/Units 16:27 TSH 0.147 L (0.340-5.600) mcIU/mL Calcium panel 07/25/18 07/26/18 Range/Units 16:27 05:06 Calcium 9.8 8.9 (8.6-10.3) mg/dL Albumin 4.2 (3.5-5.7) g/dL Pituitary panel 07/25/18 07/26/18 Range/Units 16:27 05:06 Sodium 136 139 (136-145) mEq/L Potassium 3.6 3.7 (3.5-5.1) mEq/L Chloride 102 109 H (98-107) mEq/L Carbon Dioxide 27 24 (23-29) mEq/L BUN 12 13 (8-23) mg/dL Creatinine 0.74 0.55 L (0.60-1.20) mg/dL Glucose 118 H 161 H (70-105) mg/dL Calcium 9.8 8.9 (8.6-10.3) mg/dL TSH 0.147 L (0.340-5.600) mcIU/mL Adrenal panel 07/25/18 07/26/18 Range/Units 16:27 05:06 Sodium 136 139 (136-145) mEq/L Potassium 3.6 3.7 (3.5-5.1) mEq/L Chloride 102 109 H (98-107) mEq/L Carbon Dioxide 27 24 (23-29) mEq/L BUN 12 13 (8-23) mg/dL Creatinine 0.74 0.55 L (0.60-1.20) mg/dL Glucose 118 H 161 H (70-105) mg/dL Calcium 9.8 8.9 (8.6-10.3) mg/dL Total Bilirubin 1.1 H (0.3-1.0) mg/dL AST 29 (13-39) Units/L ALT 34 (7-52) Units/L Alkaline Phosphatase 57 (34-104) Units/L Albumin 4.2 (3.5-5.7) g/dL Consult Discharge Plan - Plan Referrals: Tim Lieberman MD [Partnered Physician] - Manolo Lara DO [Primary Care Provider] - <Tim Lieberman - Last Filed: 07/26/18 10:13> Date of Encounter: 07/26/18 - Assessment and Plan (1) Left ureteral stone Current Visit: Yes Status: Acute (2) UTI (urinary tract infection) Current Visit: Yes Status: Acute Qualifiers: Qualified Code(s): N30.00 - Acute cystitis without hematuria Progress Note Narrative: Patient was seen and examined in the billing. Agree with the plan as written by Gilda Shaw. Patient feeling better, awaiting cultures Objective Initial Vital Signs Temp Pulse Resp BP Pulse Ox 100.9 F H 116 20 122/81 94 07/25/18 15:52 07/25/18 15:52 07/25/18 15:52 07/25/18 15:52 07/25/18 15:52 - Labs 07/26/18 05:06 07/26/18 05:06 Diabetes panel 07/25/18 07/26/18 Range/Units 16:27 05:06 Sodium 136 139 (136-145) mEq/L Potassium 3.6 3.7 (3.5-5.1) mEq/L Chloride 102 109 H (98-107) mEq/L Carbon Dioxide 27 24 (23-29) mEq/L BUN 12 13 (8-23) mg/dL Creatinine 0.74 0.55 L (0.60-1.20) mg/dL Glucose 118 H 161 H (70-105) mg/dL Calcium 9.8 8.9 (8.6-10.3) mg/dL AST 29 (13-39) Units/L ALT 34 (7-52) Units/L Alkaline Phosphatase 57 (34-104) Units/L Albumin 4.2 (3.5-5.7) g/dL Thyroid panel 07/25/18 Range/Units 16:27 TSH 0.147 L (0.340-5.600) mcIU/mL Calcium panel 07/25/18 07/26/18 Range/Units 16:27 05:06 Calcium 9.8 8.9 (8.6-10.3) mg/dL Albumin 4.2 (3.5-5.7) g/dL Pituitary panel 07/25/18 07/26/18 Range/Units 16:27 05:06 Sodium 136 139 (136-145) mEq/L Potassium 3.6 3.7 (3.5-5.1) mEq/L Chloride 102 109 H (98-107) mEq/L Carbon Dioxide 27 24 (23-29) mEq/L BUN 12 13 (8-23) mg/dL Creatinine 0.74 0.55 L (0.60-1.20) mg/dL Glucose 118 H 161 H (70-105) mg/dL Calcium 9.8 8.9 (8.6-10.3) mg/dL TSH 0.147 L (0.340-5.600) mcIU/mL Adrenal panel 07/25/18 07/26/18 Range/Units 16:27 05:06 Sodium 136 139 (136-145) mEq/L Potassium 3.6 3.7 (3.5-5.1) mEq/L Chloride 102 109 H (98-107) mEq/L Carbon Dioxide 27 24 (23-29) mEq/L BUN 12 13 (8-23) mg/dL Creatinine 0.74 0.55 L (0.60-1.20) mg/dL Glucose 118 H 161 H (70-105) mg/dL Calcium 9.8 8.9 (8.6-10.3) mg/dL Total Bilirubin 1.1 H (0.3-1.0) mg/dL AST 29 (13-39) Units/L ALT 34 (7-52) Units/L Alkaline Phosphatase 57 (34-104) Units/L Albumin 4.2 (3.5-5.7) g/dL
--- NOTE | 2018-07-26 09:57 | Internal Med Progress Note ---
<Magy Spear - Last Filed: 07/26/18 13:54> Hospitalist Progress Note - Encounter Date of Encounter: 07/26/18 Time of Encounter: 09:44 - Subjective Interval History: 78-year-old female with past medical history of recurrent kidney stones, hypertension, hypothyroidism who presented complaining of dysuria, fever, chills. She is s/p left percutaneous nevertheless sodomy on 07/21/2018 with nephrostomy to placement that have since been removed. Hospital course complicated by after discharge she returned to ED next day with fever, chills, hematuria, amd UTI for which she received nitrofurantoin despite listed as a allergy discharged home. Patient returned to ED on 07/25/2018 complaining a fever, chills, dysuria, diffuse rash on back. Abdomen/pelvis CT demonstrating 4 mm stone and distal left ureter with moderate obstructive uropathy. Peripelvic fat stranding suggestive of pyelitis is with bubbles of gas that could be infe ctious gas produced by organism or due to recent instrumentation. This is most likely due to recent instrumentation. Patient was taken to the OR on 07/25/2018 for left ureteroscopic basket retrieval of stone and ureteral stent placement. Started on antibiotics. Today, the patient is resting comfortably in the bed she is alert and oriented times 3 in no acute distress. She denies fever, chills, back pain, hematuria, shortness of breath, chest pain. She does admit to urinary frequency and dys uria still. She is requesting something for the dysuria. She has no other complaints. She is tolerating oral intake while. - Exam Vitals: Temp Pulse Resp BP Pulse Ox 98.5 F 65 14 140/78 97 07/26/18 06:55 07/26/18 06:55 07/26/18 06:55 07/26/18 06:55 07/26/18 08:05 Exam: Gen.: Vitals noted. No acute distress. AAOx3 HEENT: oropharynx clear, Normocephalic, atraumatic Cardiac: RRR, grade 4 systolic murmur, +S1/S2 Pulmonary: CTA bilaterally, no wheezes, rales or rhonchi, equal chest expansion Abdomen: soft, nontender, Bowel sounds noted, no guarding Back: Nontender throughout, postsurgical incision appears clean and intact. Diffuse macular rash on back. MSK: ROM intact, no joint swelling noted Extremities: no BLE edema, nontender calf, no cyanosis or clubbing Neuro: A&Ox3, moves all extremities, no focal deficits Psych: Appropriate mood and behavior - Assessment and Plan (1) Complicated UTI (urinary tract infection) Current Visit: Yes Status: Acute Assessment and Plan: Complicated urinary tract infection secondary to recent urological procedure. s/p left percutaneous nevertheless sodomy on 07/21/2018 with nephrostomy to placement that have since been removed. History of recurrent kidney stones. -Afebrile, WBC WNL, hemodynamically stable -urinalysis demonstrating nitrite, leukocyte esterase, WBC -blood culture pending -Abdomen/pelvis CT demonstrating 4 mm stone and distal left ureter with moderate obstructive uropathy. Peripelvic fat stranding suggestive of pyelitis is with bubbles of gas that could be infectious gas produced by organism or due to recent instrumentation. Most likely secondary to recent instrumentation. -patient reports dysuria in urinary frequency. She denies fever, chills, hematuria. Plan -continue IV Levaquin day 1 -await urine culture sensitivity -await blood culture -urology following -belladonna ordered for dysuria -stop IV fluids (2) Left ureteral stone Current Visit: Yes Status: Acute Assessment and Plan: Patient was taken to the OR on 07/25/2018 for left ureteroscopic basket retrieval of stone and ureteral stent placement. -Abdomen/pelvis CT demonstrating 4 mm stone and distal left ureter with moderate obstructive uropathy. Peripelvic fat stranding suggestive of pyelitis is with bubbles of gas that could be infectious gas produced by organism or due to recent instrumentation. Most likely secondary to recent instrumentation. -Urology following and managing. (3) Hydronephrosis, left Current Visit: Yes Status: Acute Assessment and Plan: Secondary to left ureteral stone -Abdomen/pelvis CT demonstrating 4 mm stone and distal left ureter with moderate obstructive uropathy. Peripelvic fat stranding suggestive of pyelitis is with bubbles of gas that could be infectious gas produced by organism or due to recent instrumentation. -Patient was taken to the OR on 07/25/2018 for left ureteroscopic basket retrieval of stone and ureteral stent placement. -Plan as above (4) Decreased thyroid stimulating hormone (TSH) level Current Visit: Yes Status: Acute Assessment and Plan: Patient is history of hyperthyroidism taking levothyroxine 75 mg. -TSH 0.147 which is low. -Will check patient's T4 as she may need a lower dose of levothyroxine. -Will hold levothyroxine for now (5) Drug eruption Current Visit: Yes Status: Acute Assessment and Plan: Most likely drug reaction to nitrofurantoin. -Patient was given nitrofurantoin despite it being listed as an allergy a couple days ago for UTI when she presented to the ED a couple days ago. She took 2 doses of the nitrofurantoin. On admission to the ED it was noted she had a diffuse macular rash on her back. She denies shortness of breath or itchiness. -Rash on back is diffusely macular and appears faded. She denies itchiness. -Will continue to monitor. -Will not give nitrofurantoin. (6) DVT prophylaxis Current Visit: Yes Status: Acute Assessment and Plan: Heparin SQ (7) Hypertension Current Visit: Yes Status: Acute Assessment and Plan: History of hypertension taking losartan/hydrocothiazide -blood pressure stable -continue home medication - Time Spent with Patient Total time spent is greater than 50% in coordination of care (as documented) at patient's floor/unit and/or counseling patient: Internal Medicine: Result - Labs CBC & Chem 7: 07/26/18 05:06 07/26/18 05:06 Labs: Short CBC 07/25/18 07/26/18 Range/Units 16:27 05:06 WBC 10.1 7.2 (4.3-11.1) K/mcL Hgb 13.5 D 11.7 D (11.5-15.4) g/dL Hct 38.7 34.1 L (35.3-44.9) % Plt Count 269 249 (140-400) K/mcL Neutrophils # 9.2 H 6.7 (1.6-8.9) K/mcL BMP 07/25/18 07/26/18 16:27 05:06 Sodium 136 139 Potassium 3.6 3.7 Chloride 102 109 H Carbon Dioxide 27 24 BUN 12 13 Creatinine 0.74 0.55 L Glucose 118 H 161 H Calcium 9.8 8.9 Liver Function 07/25/18 Range/Units 16:27 Total Bilirubin 1.1 H (0.3-1.0) mg/dL AST 29 (13-39) Units/L ALT 34 (7-52) Units/L Alkaline Phosphatase 57 (34-104) Units/L Albumin 4.2 (3.5-5.7) g/dL Urine 07/25/18 Range/Units 16:40 Urine Color Dark Yellow (Yellow) Urine Clarity Cloudy A (Clear) Urine pH 7.0 (5.0-8.0) pH Units Ur Specific [place] 1.014 (1.010-1.025) Urine Protein 30 H (Neg-Trace) mg/dL Urine Glucose (UA) Normal (Normal) mg/dL - Impressions Impressions Fluoroscopy 07/25/18 00:00 IMPRESSION: Intraprocedural fluoroscopic spot images as above. See separate procedure report for more information. D/ / Micaela Majano MD / Micaela Majano MD Interpreting Provider: Micaela Majano MD Abdomen/Pelvis CT 07/25/18 16:31 IMPRESSION: A large stone that was present in the left renal pelvis on the comparison exam is no longer present. There is now a 4 mm stone in the distal left ureter with moderate obstructive uropathy. There is peripelvic fat stranding suggesting pyelitis, with bubbles of gas in the left pelvicaliceal system which may be due to an infection by a gas producing organism or recent instrumentation. This may account for gas in the urinary bladder is well D/ / Deven Powell MD / Deven Powell MD Interpreting Provider: Deven Powell MD Chest X-Ray 07/25/18 16:59 IMPRESSION: No acute cardiopulmonary disease. D/ / Dl Hendrix MD / Dl Hendrix MD Interpreting Provider: Dl Hendrix MD Consult Discharge Plan - Plan Referrals: Tim Lieberman MD [Partnered Physician] - Manolo Lara DO [Primary Care Provider] - <Nan Castro - Last Filed: 07/26/18 22:48> Hospitalist Progress Note - Encounter Date of Encounter: 07/26/18 - Exam Vitals: Temp Pulse Resp BP Pulse Ox 98.1 F 67 15 105/52 97 07/26/18 19:46 07/26/18 19:46 07/26/18 19:46 07/26/18 19:46 07/26/18 19:46 - Assessment and Plan (1) Drug eruption Current Visit: Yes Status: Acute (2) Left ureteral stone Current Visit: Yes Status: Acute (3) Decreased thyroid stimulating hormone (TSH) level Current Visit: Yes Status: Acute (4) Complicated UTI (urinary tract infection) Current Visit: Yes Status: Acute (5) Hydronephrosis, left Current Visit: Yes Status: Acute (6) DVT prophylaxis Current Visit: Yes Status: Acute (7) Hypertension Current Visit: Yes Status: Acute - Time Spent with Patient Total time spent is greater than 50% in coordination of care (as documented) at patient's floor/unit and/or counseling patient: Internal Medicine: Result - Labs CBC & Chem 7: 07/26/18 05:06 07/26/18 05:06 Labs: Short CBC 07/26/18 Range/Units 05:06 WBC 7.2 (4.3-11.1) K/mcL Hgb 11.7 D (11.5-15.4) g/dL Hct 34.1 L (35.3-44.9) % Plt Count 249 (140-400) K/mcL Neutrophils # 6.7 (1.6-8.9) K/mcL BMP 07/26/18 05:06 Sodium 139 Potassium 3.7 Chloride 109 H Carbon Dioxide 24 BUN 13 Creatinine 0.55 L Glucose 161 H Calcium 8.9 - Attending Attestation I examined this patient and my medical decision-making was reviewed with the Resident Physician. I agree with the documented findings, disposition and treatment plan as described except to the extent set forth below.
[2018-07-27 01:12] LABS: Basophils % 0.1 %; Eosinophils % 0.1 %; Hematocrit 30.3 % (35.3-44.9); Hemoglobin 10.3 g/dL (11.5-15.4); Immature Granulocytes % 0.5 % (0-4); Lymphocytes # 1.2 K/mcL (0.6-4.6); Lymphocytes % 9.7 %; Mean Corpuscular Hemoglobin 32.8 pg (28.0-33.3); Mean Corpuscular Volume 96.5 fL (83.0-100.0); Mean Platelet Volume 10.2 fL (9.4-12.4); Monocytes % 8.5 %; Neutrophils # 9.9 K/mcL (1.6-8.9); Platelet Count 246 K/mcL (140-400); Red Blood Count 3.14 M/mcL (3.82-4.97); Red Cell Distribution Width 11.6 % (11.5-14.5); Segmented Neutrophils % 81.1 %
[2018-07-27 01:13] LABS: White Blood Count 12.2 K/mcL (4.3-11.1)
[2018-07-27 01:29] LABS: BUN/Creatinine Ratio 26 (6-26); Blood Urea Nitrogen 20 mg/dL (8-23); Carbon Dioxide 25 mEq/L (23-29); Chloride 108 mEq/L (98-107); Glucose 130 mg/dL (70-105); Osmolality,Calculated 296 (280-300); Potassium 3.8 mEq/L (3.5-5.1); Sodium 141 mEq/L (136-145); eGFR For African Americans > 60 (> 60); eGFR For Non-African Americans > 60 (> 60)
[2018-07-27] MEDS: *HR* Heparin 5,000 UNIT/ML VIAL SQ SCH ×3 (05:41→20:23)
[2018-07-27] MEDS: Hyoscyamine SL 0.125 MG TAB.SUBL SL PRN (06:45)
--- NOTE | 2018-07-27 08:22 | Internal Med Progress Note ---
<Ariana Cary - Last Filed: 07/27/18 13:42> Hospitalist Progress Note - Encounter Date of Encounter: 07/27/18 - Exam Vitals: Temp Pulse Resp BP Pulse Ox 97.8 F 61 14 116/59 96 07/27/18 11:55 07/27/18 11:55 07/27/18 11:55 07/27/18 11:55 07/27/18 11:55 - Assessment and Plan (1) Drug eruption Current Visit: Yes Status: Acute (2) Left ureteral stone Current Visit: Yes Status: Acute (3) Decreased thyroid stimulating hormone (TSH) level Current Visit: Yes Status: Acute (4) Complicated UTI (urinary tract infection) Current Visit: Yes Status: Acute (5) Hydronephrosis, left Current Visit: Yes Status: Acute (6) DVT prophylaxis Current Visit: Yes Status: Acute (7) Hypertension Current Visit: Yes Status: Acute - Time Spent with Patient Total time spent is greater than 50% in coordination of care (as documented) at patient's floor/unit and/or counseling patient: Internal Medicine: Result - Labs CBC & Chem 7: 07/27/18 00:45 07/27/18 00:45 Labs: Short CBC 07/27/18 Range/Units 00:45 WBC 12.2 H D (4.3-11.1) K/mcL Hgb 10.3 L (11.5-15.4) g/dL Hct 30.3 L (35.3-44.9) % Plt Count 246 (140-400) K/mcL Neutrophils # 9.9 H (1.6-8.9) K/mcL BMP 07/27/18 00:45 Sodium 141 Potassium 3.8 Chloride 108 H Carbon Dioxide 25 BUN 20 Creatinine 0.76 Glucose 130 H Calcium 9.0 Consult Discharge Plan - Plan Referrals: Tim Lieberman MD [Partnered Physician] - 08/15/18 10:45 am Gilda Shaw PAC [Physician Principal Research Economist] - 07/29/18 12:30 pm (Stent pull. Thank you) Prescriptions: Hyoscyamine SL [Levsin SL] 0.125 mg SL TID PRN #[id number] tab.subl PRN Reason: bladder spasms - Attending Attestation I examined this patient and my medical decision-making was reviewed with the Resident Physician Dr Spear. I agree with the documented findings, disposition and treatment plan as described except to the extent set forth below. Ms Newby is admitted with complicated UTI with obstructive nephrolithiasis awake, having bladder spasms and hesitancy. denies fevers, chills, n/v. gen- alert, awake,appears stated age cv- reg rate and rhythm, normal s1,s2 lungs- ctabl, no wheezing, rhonchi or crackles abd- soft, non tender, non distended, + bs neuro- AAOx3 complicated UTI- wbc elevating, afebrile, levquin + vanc, awaiting cx results, prelim gpc L ureteral stone w hydronephrosis s/p 07/25/2018 for left ureteroscopic basket retrieval of stone and ureteral stent placement- urology following low tsh with normal T4- cont synthroid dose and fu with pcp for recheck HTN- cont marco emeds, fu with pcp Sepsis on admission 2/2 UTI as above- resolved further diagnoses and plan as noted by resident <Magy Spear - Last Filed: 07/27/18 14:33> Hospitalist Progress Note - Encounter Date of Encounter: 07/27/18 Time of Encounter: 10:00 - Subjective Interval History: 78-year-old female with past medical history of recurrent kidney stones, hypertension, hypothyroidism who presented complaining of dysuria, fever, chills. She is s/p left percutaneous nevertheless sodomy on 07/21/2018 with n ephrostomy to placement that have since been removed. Hospital course complicated by after discharge she returned to ED next day with fever, chills, hematuria, amd UTI for which she received nitrofurantoin despite listed as a allergy discharged home. Patient returned to ED on 07/25/2018 complaining a fever, chills, dysuria, diffuse rash on back. Abdomen/pelvis CT demonstrating 4 mm stone and distal left ureter with moderate obstructive uropathy. Peripelvic fat stranding suggestive of pyelitis is with bubbles of gas that could be infectious gas produced by organism or due to recent instrumentation. This is most likely due to recent instrumentation. Patient was taken to the OR on 07/25/2018 for left ureteroscopic basket retrieval of stone and ureteral stent placement. Started on antibiotics. Today, the patient's resting comfortably sitting in her chair. She admits to continue dysuria and urinary frequency. she denies fever, chills, chest pain, shortness of breath, back pain. She is looking for to be discharged once antibiotics can be determined. - Exam Vitals: Temp Pulse Resp BP Pulse Ox 98.0 F 64 16 137/70 98 07/27/18 07:27 07/27/18 07:27 07/27/18 07:27 07/27/18 07:27 07/27/18 07:27 Exam: Gen.: Vitals noted. No acute distress. AAOx3 HEENT: oropharynx clear, Normocephalic, atraumatic Cardiac: RRR, grade 4 systolic murmur, +S1/S2 Pulmonary: CTA bilaterally, no wheezes, rales or rhonchi, equal chest expansion Abdomen: soft, nontender, Bowel sounds noted, no guarding Back: Nontender throughout, postsurgical incision appears clean and intact. Diffuse macular rash on back. Extremities: no BLE edema, nontender calf, no cyanosis or clubbing Neuro: A&Ox3, moves all extremities, no focal deficits Psych: Appropriate mood and behavior - Assessment and Plan (1) Complicated UTI (urinary tract infection) Current Visit: Yes Status: Acute Assessment and Plan: Complicated urinary tract infection secondary to recent urological procedure. s/p left percutaneous nevertheless sodomy on 07/21/2018 with nephrostomy to placement that have since been removed. History of recurrent kidney stones. -Afebrile, hemodynamically stable -WBC increased 12.2 -urinalysis demonstrating nitrite, leukocyte esterase, WBC -blood culture pending -urine culture growing GPC -Abdomen/pelvis CT demonstrating 4 mm stone and distal left ureter with moderate obstructive uropathy. Peripelvic fat stranding suggestive of pyelitis is with bubbles of gas that could be infectious gas produced by organism or due to recent instrumentation. Most likely secondary to recent instrumentation. -patient reports continued dysuria in urinary frequency. She denies fever, chills, hematuria. Plan -start IV vancomycin due to urine culture growing GPC -continue IV Levaquin day 2 -await urine culture sensitivity for final antibiotic selection for discharge -await blood culture -Toradol and tramadol PRN pain -urology following and recommend await urine culture sensitivity and a continue antibiotics for 10 to 14 days -pyridium ordered for dysuria -patient did not want belladonna rectal suppository (2) Left ureteral stone Current Visit: Yes Status: Acute Assessment and Plan: Patient was taken to the OR on 07/25/2018 for left ureteroscopic basket retrieval of stone and ureteral stent placement. -Abdomen/pelvis CT demonstrating 4 mm stone and distal left ureter with moderate obstructive uropathy. Peripelvic fat stranding suggestive of pyelitis is with bubbles of gas that could be infectious gas produced by organism or due to recent instrumentation. Most likely secondary to recent instrumentation. -Urology following and managing. (3) Hydronephrosis, left Current Visit: Yes Status: Acute Assessment and Plan: Secondary to left ureteral stone -Abdomen/pelvis CT demonstrating 4 mm stone and distal left ureter with moderate obstructive uropathy. Peripelvic fat stranding suggestive of pyelitis is with bubbles of gas that could be infectious gas produced by organism or due to recent instrumentation. -Patient was taken to the OR on 07/25/2018 for left ureteroscopic basket retrieval of stone and ureteral stent placement. -Plan as above (4) Decreased thyroid stimulating hormone (TSH) level Current Visit: Yes Status: Acute Assessment and Plan: Patient is history of hyperthyroidism taking levothyroxine 75 mg. -TSH 0.147 which is low. -T4 1.49 -Continue levothyroxine -will have patient follow-up with her PCP on subacute hyperthyroidism with low TSH and normal T4 (5) Drug eruption Current Visit: Yes Status: Acute Assessment and Plan: Most likely drug reaction to nitrofurantoin. -Patient was given nitrofurantoin despite it being listed as an allergy a couple days ago for UTI when she presented to the ED a couple days ago. She took 2 doses of the nitrofurantoin. On admission to the ED it was noted she had a diffuse macular rash on her back. She denies shortness of breath or itchiness. -Rash on back is diffusely macular and appears faded. She denies itchiness. -Will continue to monitor. -Will not give nitrofurantoin. (6) Hypertension Current Visit: Yes Status: Acute Assessment and Plan: History of hypertension taking losartan/hydrocothiazide -blood pressure stable -continue home medication (7) DVT prophylaxis Current Visit: Yes Status: Acute Assessment and Plan: Heparin SQ - Time Spent with Patient Total time spent is greater than 50% in coordination of care (as documented) at patient's floor/unit and/or counseling patient: Internal Medicine: Result - Labs CBC & Chem 7: 07/27/18 00:45 07/27/18 00:45 Labs: Short CBC 07/27/18 Range/Units 00:45 WBC 12.2 H D (4.3-11.1) K/mcL Hgb 10.3 L (11.5-15.4) g/dL Hct 30.3 L (35.3-44.9) % Plt Count 246 (140-400) K/mcL Neutrophils # 9.9 H (1.6-8.9) K/mcL BMP 07/27/18 00:45 Sodium 141 Potassium 3.8 Chloride 108 H Carbon Dioxide 25 BUN 20 Creatinine 0.76 Glucose 130 H Calcium 9.0
[2018-07-27] MEDS: Levofloxacin 500 MG/100 ML 500 MG/100 ML BAG IVPB SCH (08:55)
[2018-07-27] MEDS: Aspirin Enteric Coated 81 MG Tablet PO SCH (08:56)
[2018-07-27] MEDS: Losartan/HCTZ 50-12.5 TABLET PO SCH (08:56)
[2018-07-27] MEDS: Multivit/Ca/Min/Fe/FA 1 TAB TABLET PO SCH (08:57)
--- NOTE | 2018-07-27 09:22 | Urology Progress Note ---
<Gilda Shaw N - Last Filed: 07/27/18 09:19> Date of Encounter: 07/27/18 Time of Encounter: 08:20 - Assessment and Plan (1) Left ureteral stone Current Visit: Yes Status: Acute Assessment and plan: Patient is a 78-year-old female who presents 2 days status post left ureteroscopic basket retrieval of stone, left 4.8 x 26 cm ureteral stent placement and status post left PCNL on 07/21/2018. Patient is recovering well postoperatively but complains of continuous stent discomfort. Patient is aware she will require stent removal on 07/29/2018 at 9 AM. Preliminary urine culture is positive for gram-positive cocci. Patient is receiving IV Levaquin. Urology recommends awaiting final culture and sensitivity report and transitioning patient to culture sensitive antibiotics for 10-14 days. (2) UTI (urinary tract infection) Current Visit: Yes Status: Acute Qualifiers: Urinary tract infection type: acute cystitis Hematuria presence: without hematuria Qualified Code(s): N30.00 - Acute cystitis without hematuria Progress Note Subjective: no new complaints, feels better Narrative: POD #2. Patient seen and examined sitting upright in bed in no apparent distress. Patient is tolerating normal diet without nausea or vomiting. Patient is voiding without difficulty. Patient complains of continued stent discomfort with dysuria, urgency and frequency. Patient denies fever, chills, nausea, vomiting or flank pain. Objective Initial Vital Signs Temp Pulse Resp BP Pulse Ox 100.9 F H 116 20 122/81 94 07/25/18 15:52 07/25/18 15:52 07/25/18 15:52 07/25/18 15:52 07/25/18 15:52 - General physical appearance Present: well developed, no distress, no pain - Respiratory Present: normal expansion, normal respiratory effort - Abdomen Present: soft, non tender. Absent: distended - Genitourinary Present: other (No CVAT) - Integumentary Present: no rash, no abnormal pigmentation - Musculoskeletal Present: normal gait, normal posture - Psychiatric Present: oriented to time, oriented to person, oriented to place, speech is normal, memory intact - Labs 07/27/18 00:45 07/27/18 00:45 Diabetes panel 07/27/18 Range/Units 00:45 Sodium 141 (136-145) mEq/L Potassium 3.8 (3.5-5.1) mEq/L Chloride 108 H (98-107) mEq/L Carbon Dioxide 25 (23-29) mEq/L BUN 20 (8-23) mg/dL Creatinine 0.76 (0.60-1.20) mg/dL Glucose 130 H (70-105) mg/dL Calcium 9.0 (8.6-10.3) mg/dL Calcium panel 07/27/18 Range/Units 00:45 Calcium 9.0 (8.6-10.3) mg/dL Pituitary panel 07/27/18 Range/Units 00:45 Sodium 141 (136-145) mEq/L Potassium 3.8 (3.5-5.1) mEq/L Chloride 108 H (98-107) mEq/L Carbon Dioxide 25 (23-29) mEq/L BUN 20 (8-23) mg/dL Creatinine 0.76 (0.60-1.20) mg/dL Glucose 130 H (70-105) mg/dL Calcium 9.0 (8.6-10.3) mg/dL Adrenal panel 07/27/18 Range/Units 00:45 Sodium 141 (136-145) mEq/L Potassium 3.8 (3.5-5.1) mEq/L Chloride 108 H (98-107) mEq/L Carbon Dioxide 25 (23-29) mEq/L BUN 20 (8-23) mg/dL Creatinine 0.76 (0.60-1.20) mg/dL Glucose 130 H (70-105) mg/dL Calcium 9.0 (8.6-10.3) mg/dL Consult Discharge Plan - Plan Referrals: Tim Lieberman MD [Partnered Physician] - 08/15/18 10:45 am Gilda Shaw PAC [Physician Catalyst Impregnator] - 07/29/18 12:30 pm (Stent pull. Thank you) <Tim Lieberman - Last Filed: 07/27/18 10:44> Date of Encounter: 07/27/18 - Assessment and Plan (1) Left ureteral stone Current Visit: Yes Status: Acute (2) UTI (urinary tract infection) Current Visit: Yes Status: Acute Qualifiers: Urinary tract infection type: acute cystitis Hematuria presence: without hematuria Qualified Code(s): N30.00 - Acute cystitis without hematuria Progress Note Narrative: Patient was seen and examined independently. Agree with the plan as written by Gilda Shaw. Patient with gram-positive growing in her urine. Recommend for 2 weeks of culture specific antibiotics. Patient will follow-up with my office on Wednesday for stent removal. Prescription for Levsin sent to her pharmacy.. Objective Initial Vital Signs Temp Pulse Resp BP Pulse Ox 100.9 F H 116 20 122/81 94 07/25/18 15:52 07/25/18 15:52 07/25/18 15:52 07/25/18 15:52 07/25/18 15:52 - Labs 07/27/18 00:45 07/27/18 00:45 Diabetes panel 07/27/18 Range/Units 00:45 Sodium 141 (136-145) mEq/L Potassium 3.8 (3.5-5.1) mEq/L Chloride 108 H (98-107) mEq/L Carbon Dioxide 25 (23-29) mEq/L BUN 20 (8-23) mg/dL Creatinine 0.76 (0.60-1.20) mg/dL Glucose 130 H (70-105) mg/dL Calcium 9.0 (8.6-10.3) mg/dL Calcium panel 07/27/18 Range/Units 00:45 Calcium 9.0 (8.6-10.3) mg/dL Pituitary panel 07/27/18 Range/Units 00:45 Sodium 141 (136-145) mEq/L Potassium 3.8 (3.5-5.1) mEq/L Chloride 108 H (98-107) mEq/L Carbon Dioxide 25 (23-29) mEq/L BUN 20 (8-23) mg/dL Creatinine 0.76 (0.60-1.20) mg/dL Glucose 130 H (70-105) mg/dL Calcium 9.0 (8.6-10.3) mg/dL Adrenal panel 07/27/18 Range/Units 00:45 Sodium 141 (136-145) mEq/L Potassium 3.8 (3.5-5.1) mEq/L Chloride 108 H (98-107) mEq/L Carbon Dioxide 25 (23-29) mEq/L BUN 20 (8-23) mg/dL Creatinine 0.76 (0.60-1.20) mg/dL Glucose 130 H (70-105) mg/dL Calcium 9.0 (8.6-10.3) mg/dL
[2018-07-27] MEDS ORDERED: Aminoglycoside Consult 1 EACH MC ONE (18:14)
[2018-07-27] MEDS: traZODone 50 MG TABLET PO PRN (20:20)
[2018-07-28 04:16] LABS: Basophils % 0.4 %; Eosinophils # 0.4 K/mcL (0.0-0.6); Eosinophils % 4.9 %; Hematocrit 30.8 % (35.3-44.9); Hemoglobin 10.4 g/dL (11.5-15.4); Immature Granulocytes % 0.8 % (0-4); Lymphocytes % 27.5 %; Mean Corpuscular HGB Conc 33.8 g/dL (31.6-35.5); Mean Corpuscular Hemoglobin 33.7 pg (28.0-33.3); Mean Corpuscular Volume 99.7 fL (83.0-100.0); Mean Platelet Volume 9.7 fL (9.4-12.4); Monocytes # 0.8 K/mcL (0.0-1.3); Monocytes % 10.7 %; Platelet Count 241 K/mcL (140-400); Red Blood Count 3.09 M/mcL (3.82-4.97); Red Cell Distribution Width 11.8 % (11.5-14.5); Segmented Neutrophils % 55.7 %; White Blood Count 7.2 K/mcL (4.3-11.1)
[2018-07-28] MEDS: *HR* Heparin 5,000 UNIT/ML VIAL SQ SCH ×2 (04:55→13:20)
[2018-07-28] MEDS: Losartan/HCTZ 50-12.5 TABLET PO SCH (07:27)
[2018-07-28] MEDS: Multivit/Ca/Min/Fe/FA 1 TAB TABLET PO SCH (07:27)
[2018-07-28] MEDS: Aspirin Enteric Coated 81 MG Tablet PO SCH (07:27)
[2018-07-28] MEDS: Levofloxacin 500 MG/100 ML 500 MG/100 ML BAG IVPB SCH (07:28)
--- NOTE | 2018-07-28 08:06 | Discharge Summary ---
<Magy Spear - Last Filed: 07/28/18 09:51> - NOTES TO OUTPATIENT PROVIDER Notes to Outpatient Provider: Admitted for left ureteral stone and urinary tract infection. Patient to OR on 07/25/2018 for left ureteroscopic basket retrieval of stone and ureteral stent placement. Patient to follow up with urology to [facility] at 12:30 PM for stent removal. Discharged with IV vancomycin (due to type of organism and multiple antibiotic allergies) for total 10 days antibiotic treatment. Home health to administer. TSH noted below and T4 normal. Patient will need follow-up on repeat TSH level. Orders not resulted at time of discharge: Pending orders 07/25/18 XR KUB [XR] Routine 07/25/18 17:19 Culture,Blood [BC] Stat Date of Encounter: 07/28/18 Time of Encounter: 08:06 - Discharge Diagnosis (1) Left ureteral stone Priority: Primary Status: Acute (2) Complicated UTI (urinary tract infection) Priority: Secondary Status: Acute (3) Hydronephrosis, left Priority: Secondary Status: Acute (4) Decreased thyroid stimulating hormone (TSH) level Priority: Secondary Status: Acute (5) Drug eruption Priority: Secondary Status: Acute (6) DVT prophylaxis Priority: Secondary Status: Acute (7) Hypertension Priority: Secondary Status: Acute Qualifiers: Hypertension type: essential hypertension Qualified Code(s): I10 - Essential (primary) hypertension Hospital course: Ms. Newby is a 78 year old female with past medical history of recurrent kidney stones, hypertension, hypothyroidism who presented complaining of dysuria, fever, chills. She is s/p left percutaneous nephrolithotomy on 07/21/2018 with nephrostomy tube placement that have since been removed. Hospital course complicated by after discharge she returned to ED next day with fever, chills, hematuria, amd UTI for which she received nitrofurantoin despite listed as a allergy discharged home. Patient returned to ED on 07/25/2018 complaining a fever, chills, dysuria, diffuse rash on back. Abdomen/pelvis CT demonstrating 4 mm stone and distal left ureter with moderate obstructive uropathy. Peripelvic fat stranding suggestive of pyelitis is with bubbles of gas that could be infectious gas produced by organism or due to recent instrumentation. This is most likely due to recent instrumentation. Patient was taken to the OR on 07/25/2018 for left ureteroscopic basket retrieval of stone and ureteral stent placement. Urology continue to follow with the patient in hospital. She was started on IV antibiotics and urine cultures were taken for symptoms insistent with urinary tract infection. Urinalysis demonstrating nitrite, leukocyte esterase, WBC. The patient had a drug reaction likely to nitrofurantoin in which she had a rash that developed on her back I was not itchy. It improved over the course of her hospital stay. Urine culture returned showing enterococcus faecalis. Due to the patient having multiple antibiotic allergies including penicillin she had a be discharged with vancomycin to continue antibiotic course for total of 10 days. housekeeping laundry worker arranged for home health to administer her vancomycin at home. She is to get vancomycin trough on 07/29/2018 prior to vancomycin infusion. She is to follow-up with urology tomorrow in the office on 07/29/2018 for stent removal. Of note, the patient's TSH level 0.147 was low and T4 1.49 normal. Upon discharge she denied fever, chills, dysuria, abdominal pain, hematuria. She stated that her dysuria have resolved when she was taking the pyridium. She was told to follow up with her primary care provider in 1 to 2 weeks. She is alert and oriented times 3 and stated clear understanding of the treatment plan. Discharge discussed with: patient, nurse, social work - Time Spent with Patient Total time spent providing and/or coordinating discharge services: Time spent: Greater than 30 minutes - Discharge Medications Prescriptions: New Hyoscyamine SL [Levsin SL] 0.125 mg SL TID PRN #20 tab.subl PRN Reason: bladder spasms Phenazopyridine [Pyridium] 200 mg PO TID PRN 5 Days #15 tablet PRN Reason: See Comments Vancomycin [Vancocin] 1,000 mg IV ONCE #8 vial Amoxicillin 875 mg PO BID #20 tablet Continued Losartan/HCTZ [Hyzaar 50-12.5 Tablet] 1 tab PO BID Levothyroxine [Synthroid] 75 mcg PO 0630 Turmeric Root Extract [Turmeric] 500 mg PO DAILY Multivitamin [One Daily Essential] 1 tab PO DAILY Biotin 1 mg PO DAILY Potassium Chloride [K-Tab ER] 20 meq PO DAILY Aspirin [Lo-Dose Aspirin EC] 81 mg PO DAILY Trazodone HCl 25 mg PO HS PRN PRN Reason: Sleep Glucosamine Sulfate Dipot Chlr [Glucosamine] 1,000 mg PO DAILY Home Medications: Biotin 1 mg PO DAILY 03/03/17 [History] Levothyroxine [Synthroid] 75 mcg PO 0630 03/03/17 [History] Losartan/HCTZ [Hyzaar 50-12.5 Tablet] 1 tab PO BID 03/03/17 [History] Multivitamin [One Daily Essential] 1 tab PO DAILY 03/03/17 [History] Turmeric Root Extract [Turmeric] 500 mg PO DAILY 03/03/17 [History] Aspirin [Lo-Dose Aspirin EC] 81 mg PO DAILY 07/21/18 [History] Potassium Chloride [K-Tab ER] 20 meq PO DAILY 07/21/18 [History] Glucosamine Sulfate Dipot Chlr [Glucosamine] 1,000 mg PO DAILY 07/27/18 [History] Hyoscyamine SL [Levsin SL] 0.125 mg SL TID PRN #20 tab.subl 07/27/18 [Rx] Trazodone HCl 25 mg PO HS PRN 07/27/18 [History] Amoxicillin 875 mg PO BID #20 tablet 07/28/18 [Rx] Phenazopyridine [Pyridium] 200 mg PO TID PRN 5 Days #15 tablet 07/28/18 [Rx] Vancomycin [Vancocin] 1,000 mg IV ONCE #8 vial 07/28/18 [Rx] Allergies/Adverse Reactions: Allergy/AdvReac Type Severity Reaction Status Date / Time Cefaclor [From Ceclor] Allergy Rash Verified 03/03/17 10:45 Cortisone Allergy Rash Verified 03/03/17 10:45 hydrocodone Allergy Rash Verified 03/03/17 10:45 methylprednisolone Allergy Rash Verified 03/03/17 10:45 [From Medrol] nitrofurantoin Allergy Rash Verified 03/03/17 10:45 [From Macrobid] Penicillins [PCN] Allergy Rash Verified 03/03/17 10:45 Sulfa (Sulfonamide Allergy Rash Verified 03/03/17 10:45 Antibiotics) Date of admission: 07/25/18 20:50 Primary care physician: Manolo Lara DO Consults: 07/25/18 17:33 Consult to Urology [CONS] Stat Consulting Provider: Urology Kyra Reason for Consult: post-op fever, UTI Time Notified: 17:33 Call Completed: Yes Discharging clinician: Ariana Cary Anticipated date of discharge: 07/28/18 - Constitutional Vitals: Temp Pulse Resp BP Pulse Ox 98.0 F 56 18 127/57 94 07/28/18 07:22 07/28/18 07:22 07/28/18 07:22 07/28/18 07:22 07/28/18 07:35 Exam: Gen.: Vitals noted. No acute distress. AAOx3 HEENT: oropharynx clear, Normocephalic, atraumatic Cardiac: RRR, grade 4 systolic murmur, +S1/S2 Pulmonary: CTA bilaterally, no wheezes, rales or rhonchi, equal chest expansion Abdomen: soft, nontender, Bowel sounds noted, no guarding Back: Nontender throughout, postsurgical incision appears clean and intact. Diffuse macular rash on back. Extremities: mild BLE edema, nontender calf, no cyanosis or clubbing Neuro: A&Ox3, moves all extremities, no focal deficits Psych: Appropriate mood and behavior - Patient Status Disposition: Home Health Service Condition: Good Functional capacity at discharge: independent ambulation Overall status at discharge: patient is back to baseline - Ambulatory Orders Ambulatory Orders: Vancomycin,Trough [CHEM] Time Frame: 1 Day, Facility: [facility], Location: Home Health Services - Discharge Instructions Instructions: Kidney Stones (DC), Percutaneous Nephrolithotomy (DC), Urinary Tract Infection in Women (DC), Hydronephrosis (DC) Follow Up With: Tim Lieberman MD [Partnered Physician] - 08/15/18 10:45 am Manolo Lara DO [Primary Care Provider] - (Web request. Office will call with date and time of appointment. Thank you) Additional Instructions: - Home Health will remove ureter stent 07/29 during IV infusion home visit. -Finish taking antibiotic to completion for urinary tract infection. Take pyridium and ibuprofen as needed for burning with urination and pain. -Follow-up with her primary care provider and 1 to 2 weeks. You will need TSH (thyroid level) level rechecked and next appointment. -Return to the hospital should you develop fever, chills, worsen painful urination, blood in urine - Diet and Activity Activity: resume usual activities as tolerated Diet: advance to your usual diet <Ariana Cary - Last Filed: 07/28/18 17:17> Orders not resulted at time of discharge: Pending orders 07/25/18 XR KUB [XR] Routine 07/25/18 17:19 Culture,Blood [BC] Stat Date of Encounter: 07/28/18 - Discharge Diagnosis (1) Drug eruption Status: Acute (2) Left ureteral stone Status: Acute (3) Decreased thyroid stimulating hormone (TSH) level Status: Acute (4) Complicated UTI (urinary tract infection) Status: Acute (5) Hydronephrosis, left Status: Acute (6) DVT prophylaxis Status: Acute (7) Hypertension Status: Acute Qualifiers: Hypertension type: essential hypertension Qualified Code(s): I10 - Essential (primary) hypertension Hospital course: Ms. Newby is a 78 year old female - Time Spent with Patient Total time spent providing and/or coordinating discharge services: Time spent: Greater than 30 minutes (55 min) Date of admission: 07/25/18 20:50 Primary care physician: Manolo Lara DO Consults: 07/25/18 17:33 Consult to Urology [CONS] Stat Consulting Provider: Urology Kyra Reason for Consult: post-op fever, UTI Time Notified: 17:33 Call Completed: Yes 07/28/18 08:57 Consult to Practical Nurse Clinical Coordinator [CONS] Stat Reason for SW Consult: Patient needs IV vancomycin for 8 more days treatment. Arrangements needed for home health infusions. Patient may be discharged today. 07/28/18 09:37 Consult to Invasive Line Access Team [CONS] Routine Reason for Consult: 8 days vancomycin at home Line Type: EPIV 07/28/18 11:47 Consult to Invasive Line Access Team [CONS] Routine Reason for Consult: prison ATBs Line Type: Midline 07/28/18 14:27 Consult to Allergy/Immunology [CONS] Routine Consulting Provider: Allergy Bylas Reason for Consult: eval pcn allergy Call Completed: Yes - Constitutional Vitals: Temp Pulse Resp BP Pulse Ox 98.2 F 66 18 138/75 98 07/28/18 16:16 07/28/18 16:16 07/28/18 16:16 07/28/18 16:16 07/28/18 16:16 - Attending Attestation I examined this patient and my medical decision-making was reviewed with the Resident Physician Dr Spear. I agree with the documented findings, disposition and treatment plan as described except to the extent set forth below. Ms Newby is admitted with complicated UTI with obstructive nephrolithiasis. She is stable for dc to home. awake, feeling well and eager for dc. no bladder spasms, pain or dysuria. no fevers or chills. gen- alert, awake,appears stated age cv- reg rate and rhythm, normal s1,s2 lungs- ctabl, no wheezing, rhonchi or crackles abd- soft, non tender, non distended, + bs neuro- AAOx3 update to resident documentation Urology consulted Allergy to allergy test pcn inpt after Dr Lieberman d/w Dr Coates other potential abx recs Dr Ping Lieberman completed allergy testing inpt. She will not require outpt vanc and will go home with pcn to complete course. Will have stent removed by urology as previously scheduled outpt tomorrow complicated UTI- urology has d/w ID and plan is for pcn outpt with allergy testing completed inpt prior to dc to avoid outpt vancomycin being required, abx were limited given her allergy hx L ureteral stone w hydronephrosis s/p 07/25/2018 for left ureteroscopic basket retrieval of stone and ureteral stent placement- urology outpt 07/29 for stent removal HTN- cont home meds, fu with pcp Sepsis on admission 2/2 UTI as above- resolved further diagnoses and plan as noted by resident time spent on dc 55 min
--- NOTE | 2018-07-28 08:39 | Urology Progress Note ---
<Gilda Shaw N - Last Filed: 07/28/18 08:36> Date of Encounter: 07/28/18 Time of Encounter: 08:15 - Assessment and Plan (1) Left ureteral stone Current Visit: Yes Status: Acute Assessment and plan: Patient is a 78-year-old female who presents 3 days status post left ureteroscopic basket retrieval of stone, left 4.8 x 26 cm ureteral stent placement and 7 days status post left PCNL. Patient is recovering very well postoperatively and is tolerating the indwelling stent well. Patient is aware she will require stent removal tomorrow, and she will presented to [place] [facility] at 12:30 PM for string stent removal. (2) UTI (urinary tract infection) Current Visit: Yes Status: Acute Assessment and plan: Patient is a 78-year-old female who presents with a urinary tract infection. Urine culture is positive for pansensitive enterococcus. We recommend an additional 10-14 days of oral culture sensitive antibiotics. It is of note, patient experienced allergic reaction to nitrofurantoin. Qualifiers: Urinary tract infection type: acute cystitis Hematuria presence: without hematuria Qualified Code(s): N30.00 - Acute cystitis without hematuria Progress Note Subjective: no new complaints, feels better Narrative: Patient seen and examined sitting upright in bed in no apparent distress. Patient is tolerating normal diet without nausea or vomiting. Patient reports dysuria, urgency and frequency are improved. Patient is taking Azo. Patient denies any fever, chills, flank pain or gross hematuria. Objective Initial Vital Signs Temp Pulse Resp BP Pulse Ox 100.9 F H 116 20 122/81 94 07/25/18 15:52 07/25/18 15:52 07/25/18 15:52 07/25/18 15:52 07/25/18 15:52 - General physical appearance Present: well developed, no distress, no pain - Respiratory Present: normal expansion, normal respiratory effort - Abdomen Present: soft, non tender. Absent: distended - Integumentary Present: no rash, no abnormal pigmentation - Musculoskeletal Present: normal posture - Psychiatric Present: oriented to time, oriented to person, speech is normal, memory intact - Labs 07/28/18 04:05 07/27/18 00:45 Consult Discharge Plan - Plan Instructions: Kidney Stones (DC), Percutaneous Nephrolithotomy (DC), Urinary Tract Infection in Women (DC), Hydronephrosis (DC) Additional Instructions: - Home Health will remove ureter stent 07/29 during IV infusion home visit. -Finish taking antibiotic to completion for urinary tract infection. Take pyridium and ibuprofen as needed for burning with urination and pain. -Follow-up with her primary care provider and 1 to 2 weeks. You will need TSH (thyroid level) level rechecked and next appointment. -Return to the hospital should you develop fever, chills, worsen painful urination, blood in urine Referrals: Tim Lieberman MD [Partnered Physician] - 08/15/18 10:45 am Manolo Lara DO [Primary Care Provider] - (Web request. Office will call with date and time of appointment. Thank you) Prescriptions: Amoxicillin 875 mg PO BID #20 tablet Hyoscyamine SL [Levsin SL] 0.125 mg SL TID PRN #20 tab.subl PRN Reason: bladder spasms Phenazopyridine [Pyridium] 200 mg PO TID PRN 5 Days #15 tablet PRN Reason: See Comments Vancomycin [Vancocin] 1,000 mg IV ONCE #8 vial <Tim Lieberman - Last Filed: 07/28/18 17:27> Date of Encounter: 07/28/18 - Assessment and Plan (1) Left ureteral stone Current Visit: Yes Status: Acute (2) UTI (urinary tract infection) Current Visit: Yes Status: Acute Qualifiers: Urinary tract infection type: acute cystitis Hematuria presence: without hematuria Qualified Code(s): N30.00 - Acute cystitis without hematuria Progress Note Narrative: Patient was seen and examined independently. Agree with the plan as written by Gilda Shaw. I removed the patient's ureteral stent. Patient will be discharged home on amoxicillin as allergy has to to the patient and she is not allergic to penicillin. Objective Initial Vital Signs Temp Pulse Resp BP Pulse Ox 100.9 F H 116 20 122/81 94 07/25/18 15:52 07/25/18 15:52 07/25/18 15:52 07/25/18 15:52 07/25/18 15:52 - Labs 07/28/18 04:05 07/27/18 00:45
--- NOTE | 2018-07-28 09:49 | Physician Discharge Referral ---
<Magy Spear - Last Filed: 07/28/18 09:48> Home Health/Hosp Referral Info Transfer to: Home Health Provider in Charge Post Discharge: PCP - Diagnosis (1) Left ureteral stone Status: Acute (2) Complicated UTI (urinary tract infection) Status: Acute (3) Hydronephrosis, left Status: Acute (4) Decreased thyroid stimulating hormone (TSH) level Status: Acute (5) Drug eruption Status: Acute (6) Hypertension Status: Acute (7) DVT prophylaxis Status: Acute - Respiratory Orders Smoking Cessation: Smoking cessation has been advised. For more information, call the [employer] Quit Line at 0-403-OUXF-NOW. - Diet/Nutrition Diet/Nutrition Orders: Regular - Services Needed Following services are medically necessary services: Nursing, Home Infusion Home Care Orders: Check vancomycin trough on 07/29/2018 prior to infusing vancomycin dose. - Transfer Medications Prescriptions: Amoxicillin 875 mg PO BID #20 tablet Hyoscyamine SL [Levsin SL] 0.125 mg SL TID PRN #20 tab.subl PRN Reason: bladder spasms Phenazopyridine [Pyridium] 200 mg PO TID PRN 5 Days #15 tablet PRN Reason: See Comments Home Medications: Biotin 1 mg PO DAILY 03/03/17 [History] Levothyroxine [Synthroid] 75 mcg PO 0630 03/03/17 [History] Losartan/HCTZ [Hyzaar 50-12.5 Tablet] 1 tab PO BID 03/03/17 [History] Multivitamin [One Daily Essential] 1 tab PO DAILY 03/03/17 [History] Turmeric Root Extract [Turmeric] 500 mg PO DAILY 03/03/17 [History] Aspirin [Lo-Dose Aspirin EC] 81 mg PO DAILY 07/21/18 [History] Potassium Chloride [K-Tab ER] 20 meq PO DAILY 07/21/18 [History] Glucosamine Sulfate Dipot Chlr [Glucosamine] 1,000 mg PO DAILY 07/27/18 [History] Hyoscyamine SL [Levsin SL] 0.125 mg SL TID PRN #20 tab.subl 07/27/18 [Rx] Trazodone HCl 25 mg PO HS PRN 07/27/18 [History] Amoxicillin 875 mg PO BID #20 tablet 07/28/18 [Rx] Phenazopyridine [Pyridium] 200 mg PO TID PRN 5 Days #15 tablet 07/28/18 [Rx] Allergies/Adverse Reactions: Allergy/AdvReac Type Severity Reaction Status Date / Time Cefaclor [From Ceclor] Allergy Rash Verified 03/03/17 10:45 Cortisone Allergy Rash Verified 03/03/17 10:45 hydrocodone Allergy Rash Verified 03/03/17 10:45 methylprednisolone Allergy Rash Verified 03/03/17 10:45 [From Medrol] nitrofurantoin Allergy Rash Verified 03/03/17 10:45 [From Macrobid] Penicillins [PCN] Allergy Rash Verified 03/03/17 10:45 Sulfa (Sulfonamide Allergy Rash Verified 03/03/17 10:45 Antibiotics) Certification: Further, I certify that my clinical findings support that this patient is homebound (i.e. absences from home require considerable and taxing effort and are for medical reasons or scientologist services or infrequently or short duration when for other reasons) because: Homebound Reason: Leaving home requires considerable and taxing effort due to condition Attestation: My signature below is to certify that this patient is under my care and that I, or nurse practitioner, or a physician's showroom sales assistant working with me, has a [id number] encounter with this patient. <Ariana Cary - Last Filed: 07/29/18 07:27> - Diagnosis (1) Drug eruption Status: Acute (2) Left ureteral stone Status: Acute (3) Decreased thyroid stimulating hormone (TSH) level Status: Acute (4) Complicated UTI (urinary tract infection) Status: Acute (5) Hydronephrosis, left Status: Acute (6) DVT prophylaxis Status: Acute (7) Hypertension Status: Acute - Respiratory Orders Smoking Cessation: Smoking cessation has been advised. For more information, call the [place] [employer] Quit Line at 0-828-VUFS-NOW. Certification: Further, I certify that my clinical findings support that this patient is homebound (i.e. absences from home require considerable and taxing effort and are for medical reasons or scientologist services or infrequently or short duration when for other reasons) because: Attestation: My signature below is to certify that this patient is under my care and that I, or nurse practitioner, or a physician's showroom sales assistant working with me, has a [id number] encounter with this patient.
[2018-07-28] MEDS ORDERED: EPINEPHrine 1 MG/ML VIAL IV PRN (15:07)
[2018-07-28] MEDS ORDERED: methylPREDNISolone 125 MG/2 ML VIAL IVP PRN (15:15)
[2018-07-28] MEDS ORDERED: Penicillin test 1000 units/0.1 ml ID ONE ×2 (15:15→15:30)
[2018-07-28] MEDS ORDERED: Famotidine 20 MG/2 ML VIAL IVP PRN (15:15)
[2018-07-28] MEDS ORDERED: Penicillin test 1000 units/0.1 ml TP ONE ×2 (15:15→15:30)
[2018-07-28] MEDS ORDERED: 0.9 % Sodium Chloride 10 ML PF VIAL TP ONE (15:15)
[2018-07-28] MEDS ORDERED: [UNRECOGNIZED DRUG - OTHER] TP ONE (15:15)
[2018-07-28] MEDS ORDERED: EPINEPHrine 1 MG/ML VIAL IM PRN (15:15)
[2018-07-28] MEDS ORDERED: Amoxicillin 500 MG CAPSULE PO ONE (15:15)
[2018-07-28] MEDS ORDERED: [UNRECOGNIZED DRUG - OTHER] TP ONE (15:15)
[2018-07-28] MEDS ORDERED: [UNRECOGNIZED DRUG - OTHER] ID ONE ×2 (15:15→15:30)
[2018-07-28] MEDS ORDERED: Amoxicillin Susp 250 MG/5 ML UDC PO ONE ×2 (15:15→15:45)
[2018-07-28 16:18] VITALS: BP 138/75
--- NOTE | 2018-07-28 16:32 | Allergy Consult Note ---
Date of Encounter: 07/28/18 Time of Encounter: 15:30 Assessment and Plan (1) Adverse effect of penicillins, initial encounter Current Visit: Yes Status: Acute Patient is a good candidate for penicillin testing. Penicillin testing was discussed in detail. I explained we will first do skin pricks on the forearm with controls and different types of penicillin. If this is negative then we will do intradermals, which are a more sensitive skin test on the upper arms with the different penicillins. If that is negative then we will proceed to a graded oral challenge with amoxicillin. Patient will be given a 10% dose of amoxicillin and observed for 15 minutes. Then I will give a full dose of amoxicillin and observe them for 60 minutes. I explained that the risk of reaction with skin test and oral challenge are low but could include hives, rash, difficulty breathing, closure of airway, drop in blood pressure, and . All questions were answered. Qualifiers: Encounter type: initial encounter Qualified Code(s): T36.0X5A - Adverse effect of penicillins, initial encounter (2) History of penicillin allergy Current Visit: Yes Status: Acute (3) Adverse effect of drug Current Visit: Yes Status: Acute Patient also has listed drug allergy to sulfa, macrobid and ceclor. 1. Patient is to check her records to see if she ever had an issue with ceclor. 2. She will continue to avoid sulfa 3. I will patch her to chlorhexadine and if positive then her recent macrobid reaction was not true allergy. Qualifiers: Encounter type: initial encounter Qualified Code(s): T50.905A - Adverse eff ect of unspecified drugs, medicaments and biological substances, initial encounter (4) Rash Current Visit: Yes Status: Acute I believe her rash was likely due to the chloraprep rather than the macrobid. Her thinks she had a concentrated rash the second day after the surgery. I will patch test her to chlorhexadine in 6-8 weeks. History of Present Illness Consult date: 07/28/18 Reason for consult: Drug allergy, Rash Requesting physician: Tim Lieberman History of present illness: Dr. Tim Lieberman is requesting my opinion if patient is a good candidate for penicillin testing. She had an illness that she was admitted for 35 years ago and was given penicillin. She quickly had a erythematous rash on trunk, arms, legs, hands and feet. She was very itching. SHe did not have any difficulty breathing, closure of the airway, vomiting or diarrhea. She does not remember what treatment she received. She has avoided penicillins since then. She is also allergic to ceclor but does not remember this and is going to check her records. She had an erythematous rash to sulfa but doesn't remember when or any details She had surgery last week and noted a rash under the dressing the day after which was worse the next day. The rash around the incision has improved but she has a rash on her back which is not itchy or bothersome. She was told it was allergy to macrobid which she started on Wednesday. Past Med Surg Social Fam HX - Past Medical History Medical history: hypertension, kidney stones Additional medical history: hypothyroidism, OA, Insomnia, Osteopenia, kidney stones Psychiatric history: no psych history - Past Surgical History Surgical History: cholecystectomy, orthopedic, other Additional surgical history: tubal ligation. lithotripsy. laminectomy. oopherectomy. D&C. prolapsed bladder repair - Social History Smoking Status: Never smoker Smokeless Tobacco Status: No Alcohol use: none Drug use: none - Family History Mother Hx Family Cardiac Disorders: Yes (HTN) Hx Family Endocrine Disorder: Yes (DM) Father Hx Family Respiratory Disorders: Yes (COPD) Medications and Allergies Biotin 1 mg PO DAILY 03/03/17 [History] Levothyroxine [Synthroid] 75 mcg PO 30 03/03/17 [History] Losartan/HCTZ [Hyzaar 50-12.5 Tablet] 1 tab PO BID 03/03/17 [History] Multivitamin [One Daily Essential] 1 tab PO DAILY 03/03/17 [History] Turmeric Root Extract [Turmeric] 500 mg PO DAILY 03/03/17 [History] Aspirin [Lo-Dose Aspirin EC] 81 mg PO DAILY 07/21/18 [History] Potassium Chloride [K-Tab ER] 20 meq PO DAILY 07/21/18 [History] Glucosamine Sulfate Dipot Chlr [Glucosamine] 1,000 mg PO DAILY 07/27/18 [History] Hyoscyamine SL [Levsin SL] 0.125 mg SL TID PRN #20 tab.subl 07/27/18 [Rx] Trazodone HCl 25 mg PO HS PRN 07/27/18 [History] Amoxicillin 875 mg PO BID #20 tablet 07/28/18 [Rx] Phenazopyridine [Pyridium] 200 mg PO TID PRN 5 Days #15 tablet 07/28/18 [Rx] Vancomycin [Vancocin] 1,000 mg IV ONCE #8 vial 07/28/18 [Rx] Allergy/AdvReac Type Severity Reaction Status Date / Time Cefaclor [From Ceclor] Allergy Rash Verified 03/03/17 10:45 Cortisone Allergy Rash Verified 03/03/17 10:45 hydrocodone Allergy Rash Verified 03/03/17 10:45 methylprednisolone Allergy Rash Verified 03/03/17 10:45 [From Medrol] nitrofurantoin Allergy Rash Verified 03/03/17 10:45 [From Macrobid] Penicillins [PCN] Allergy Rash Verified 03/03/17 10:45 Sulfa (Sulfonamide Allergy Rash Verified 03/03/17 10:45 Antibiotics) ROS Allergy - Constitutional Constitutional ROS: no fever(s) - EENT Nose, mouth and throat: no nasal congestion, no throat swelling, no tongue swelling - Cardiovascular Cardiovascular ROS IM: no chest pain, no dyspnea - Respiratory no cough, no dyspnea - Gastrointestinal Gastrointestinal: no constipation, no diarrhea, no vomiting - Musculoskeletal Musculoskeletal ROS: no abnormal gait - Integumentary Integumentary: rash, no pruritus - Hematologic/Lymphatic no easy bleeding - Allergic/Immunologic no throat swelling, no uticaria, no wheezing Allergy Exam Initial Vital Signs Temp Pulse Resp BP Pulse Ox 100.9 F H 116 20 122/81 94 07/25/18 15:52 07/25/18 15:52 07/25/18 15:52 07/25/18 15:52 07/25/18 15:52 - General physical appearance well developed, well nourished, no distress, no pain - Eyes normal ocular movement - ENT normal nares, normal mucosa, no congestion - Neck no lymphadectomy - Respiratory normal respiratory effort, clear to auscultation - Abdomen Abdomen: non tender - Integumentary no no rash (erythematous pinpoint papular rash on lower back which stops at the sides of trunk. ) - Neurologic normal coordination - Musculoskeletal normal gait - Additional Findings heart-RRR Results - Labs 07/28/18 04:05 07/27/18 00:45 Abnormal lab results WBC 12.2 K/mcL (4.3-11.1) H D 07/27/18 00:45 RBC 3.09 M/mcL (3.82-4.97) L 07/28/18 04:05 Hgb 10.4 g/dL (11.5-15.4) L 07/28/18 04:05 Hct 30.8 % (35.3-44.9) L 07/28/18 04:05 MCH 33.7 pg (28.0-33.3) H 07/28/18 04:05 RDW 11.1 % (11.5-14.5) L 07/26/18 05:06 9.9 K/mcL (1.6-8.9) H 07/27/18 00:45 0.4 K/mcL (0.6-4.6) L 07/26/18 05:06 Chloride 108 mEq/L (98-107) H 07/27/18 00:45 0.55 mg/dL (0.60-1.20) L 07/26/18 05:06 Glucose 130 mg/dL (70-105) H 07/27/18 00:45 1.1 mg/dL (0.3-1.0) H 07/25/18 16:27 TSH 0.147 mcIU/mL (0.340-5.600) L 07/25/18 16:27 Cloudy (Clear) A 07/25/18 16:40 30 mg/dL (Neg-Trace) H 07/25/18 16:40 Trace mg/dL (Negative) H 07/25/18 16:40 Large (Negative) H 07/25/18 16:40 Positive (Negative) A 07/25/18 16:40 Ur Leukocyte Esterase Trace (Negative) H 07/25/18 16:40 TNTC per hpf (0-3) H 07/25/18 16:40 5-15 per hpf (0-3) H 07/25/18 16:40 Ur Squamous Epith Cells Many per lpf (None-Few) H 07/25/18 16:40 Ur Culture Indicated? YES (NO) A 07/25/18 16:40 All other labs normal. Consult Discharge Plan - Plan Instructions: Kidney Stones (DC), Percutaneous Nephrolithotomy (DC), Urinary Tract Infection in Women (DC), Hydronephrosis (DC) Additional Instructions: - Home Health will remove ureter stent 07/29 during IV infusion home visit. -Finish taking antibiotic to completion for urinary tract infection. Take pyridium and ibuprofen as needed for burning with urination and pain. -Follow-up with her primary care provider and 1 to 2 weeks. You will need TSH (thyroid level) level rechecked and next appointment. -Return to the hospital should you develop fever, chills, worsen painful urination, blood in urine Referrals: Tim Lieberman MD [Partnered Physician] - 08/15/18 10:45 am Manolo Lara DO [Primary Care Provider] - (Web request. Office will call with date and time of appointment. Thank you) Prescriptions: Hyoscyamine SL [Levsin SL] 0.125 mg SL TID PRN #20 tab.subl PRN Reason: bladder spasms Phenazopyridine [Pyridium] 200 mg PO TID PRN 5 Days #15 tablet PRN Reason: See Comments Vancomycin [Vancocin] 1,000 mg IV ONCE #8 vial
--- NOTE | 2018-07-28 17:16 | Allergy Procedure Note ---
Date of procedure: 07/28/18 Post-op diagnosis: same Procedure: Written Consent signed: Histaime prick test (1mg/ml) -12x 18mm Saline prick test- 2x2mm Pen G 1-2x2mm, Pen G 2-2x2mm Prepen 1- 2x2mm Prepen 2-2mmx 2mm Skin test negative at 15minutes Intradermals Prepen 1 -4x4mm Prepen 2-4x4mm Pen G 1-4x4mm Pen G 2-4x4mm Intradermals negative at 15 minutes 50mg Amoxicillin given and no changes after 15 minutes. Exam unchanged. 500mg Amoxicillin given and no changes after 60 minutes. Exam unchanged. Patient is not allergic to penicillins. Anesthesia: none Was there an rehab assistant present: No Condition: stable
== END 2018-07-28 18:15 | disposition home health service (06) | DRG 854 ==
LOC: 3ANU 15:44 → EMEROOARM 15:44 → 3ANU 19:55 → SUATTDRO 20:50 → 3ANU 07-28 22:15
PROVIDERS: ADMIT Internal Medicine; ATTEND Internal Medicine

== ENCOUNTER 2019-04-20 09:05 | Observation (INO) ==
[2019-04-20] MEDS ORDERED: Isovue-370 500 ML BOTTLE IVP ONE (10:00)
[2019-04-20 10:21] LABS: Basophils # 0.1 K/mcL (0.0-0.2); Eosinophils # 0.2 K/mcL (0.0-0.6); Eosinophils % 3.1 %; Hemoglobin 13.5 g/dL (11.5-15.4); Immature Granulocytes % 0.3 % (0-4); Lymphocytes # 1.2 K/mcL (0.6-4.6); Lymphocytes % 20.5 %; Mean Corpuscular HGB Conc 33.8 g/dL (31.6-35.5); Mean Corpuscular Hemoglobin 33.3 pg (28.0-33.3); Mean Corpuscular Volume 98.8 fL (83.0-100.0); Monocytes # 0.8 K/mcL (0.0-1.3); Neutrophils # 3.6 K/mcL (1.6-8.9); Platelet Count 227 K/mcL (140-400); Red Blood Count 4.05 M/mcL (3.82-4.97); Red Cell Distribution Width 11.4 % (11.5-14.5); Segmented Neutrophils % 62.1 %; White Blood Count 5.8 K/mcL (4.3-11.1)
[2019-04-20 10:41] LABS: BUN/Creatinine Ratio 24 (6-26); Blood Urea Nitrogen 21 mg/dL (8-23); Calcium 9.6 mg/dL (8.6-10.3); Carbon Dioxide 29 mEq/L (23-29); Chloride 102 mEq/L (98-107); Glucose 94 mg/dL (70-105); Osmolality,Calculated 287 (280-300); Potassium 3.5 mEq/L (3.5-5.1); Sodium 137 mEq/L (136-145); eGFR For African Americans > 60 (> 60); eGFR For Non-African Americans > 60 (> 60)
[2019-04-20] MEDS ORDERED: Naloxone 0.4 MG/ML INJ IVP PRN ×2 (15:03→15:04)
[2019-04-20] MEDS ORDERED: Acetaminophen 325 MG TABLET PO PRN (15:04)
[2019-04-20] MEDS ORDERED: Mag Hydrox/Al Hydrox/Simeth 30 ML UDC PO PRN (15:04)
[2019-04-20] MEDS ORDERED: *HR* Promethazine 25 MG/ML VIAL IVP PRN (15:04)
[2019-04-20] MEDS ORDERED: *HR* OxyCODONE Immed Rel 5 MG TABLET PO PRN (15:04)
[2019-04-20] MEDS ORDERED: traZODone 50 MG TABLET PO PRN (18:37)
[2019-04-20] MEDS: Losartan/HCTZ 50-12.5 TABLET PO SCH (20:57)
[2019-04-20] MEDS: *HR* Heparin 5,000 UNIT/ML VIAL SQ SCH (20:57)
[2019-04-21 05:31] LABS: Basophils # 0.1 K/mcL (0.0-0.2); Basophils % 1.7 %; Eosinophils # 0.3 K/mcL (0.0-0.6); Eosinophils % 6.5 %; Hematocrit 39.9 % (35.3-44.9); Hemoglobin 13.2 g/dL (11.5-15.4); Immature Granulocytes % 0.2 % (0-4); Lymphocytes # 1.3 K/mcL (0.6-4.6); Lymphocytes % 27.9 %; Mean Corpuscular HGB Conc 33.1 g/dL (31.6-35.5); Mean Corpuscular Hemoglobin 32.8 pg (28.0-33.3); Mean Corpuscular Volume 99.3 fL (83.0-100.0); Mean Platelet Volume 10.5 fL (9.4-12.4); Monocytes # 0.8 K/mcL (0.0-1.3); Neutrophils # 2.3 K/mcL (1.6-8.9); Platelet Count 207 K/mcL (140-400); Red Blood Count 4.02 M/mcL (3.82-4.97); Red Cell Distribution Width 11.4 % (11.5-14.5); Segmented Neutrophils % 47.7 %; White Blood Count 4.8 K/mcL (4.3-11.1)
[2019-04-21] MEDS: *HR* Heparin 5,000 UNIT/ML VIAL SQ SCH (05:35)
[2019-04-21 05:49] LABS: BUN/Creatinine Ratio 23 (6-26); Blood Urea Nitrogen 18 mg/dL (8-23); Calcium 9.1 mg/dL (8.6-10.3); Carbon Dioxide 27 mEq/L (23-29); Chloride 104 mEq/L (98-107); Glucose 89 mg/dL (70-105); Osmolality,Calculated 285 (280-300); Potassium 3.4 mEq/L (3.5-5.1); Sodium 137 mEq/L (136-145); eGFR For African Americans > 60 (> 60); eGFR For Non-African Americans > 60 (> 60)
[2019-04-21 05:57] LABS: Troponin I < 0.03 ng/mL (< 0.04)
[2019-04-21] MEDS ORDERED: Regadenoson 0.4 MG/5 ML SYRINGE IVP ONE (06:04)
[2019-04-21] MEDS ORDERED: Celecoxib 200 MG CAPSULE PO SCH (09:00)
[2019-04-21] MEDS ORDERED: NON-FORMULARY MEDICATION 1 EACH EACH (Glucosamine Sulfate Dipot Chlr [Glucosamine] 1,000 M PO SCH (09:00)
[2019-04-21] MEDS ORDERED: Aspirin Enteric Coated 81 MG Tablet PO SCH (09:00)
[2019-04-21] MEDS ORDERED: NON-FORMULARY MEDICATION 1 EACH EACH (Biotin 1 MG) PO SCH (09:00)
[2019-04-21] MEDS: Losartan/HCTZ 50-12.5 TABLET PO SCH (09:20)
[2019-04-21 11:31] VITALS: BP 145/72
== END 2019-04-21 14:57 | disposition home or self-care (01) ==
LOC: 2ANU 09:05 → EMEROOARM 09:05 → 2ANU 14:43
PROVIDERS: ADMIT Internal Medicine; ATTEND Internal Medicine

== ENCOUNTER 2020-12-03 12:52 | Observation (INO) ==
[2020-12-03 14:25] LABS: Basophils # 0.1 K/mcL (0.0-0.2); Basophils % 0.9 %; Eosinophils # 0.2 K/mcL (0.0-0.6); Eosinophils % 2.7 %; Hematocrit 41.3 % (35.3-44.9); Immature Granulocytes % 0.1 % (0-4); Lymphocytes # 2.3 K/mcL (0.6-4.6); Lymphocytes % 34.9 %; Mean Corpuscular HGB Conc 33.9 g/dL (31.6-35.5); Mean Corpuscular Hemoglobin 33.1 pg (28.0-33.3); Mean Corpuscular Volume 97.6 fL (83.0-100.0); Mean Platelet Volume 10.7 fL (9.4-12.4); Monocytes # 0.6 K/mcL (0.0-1.3); Monocytes % 9.4 %; Neutrophils # 3.5 K/mcL (1.6-8.9); Platelet Count 214 K/mcL (140-400); Red Blood Count 4.23 M/mcL (3.82-4.97); Red Cell Distribution Width 11.6 % (11.5-14.5); White Blood Count 6.7 K/mcL (4.3-11.1)
[2020-12-03 15:29] LABS: Alanine Aminotransferase 17 Units/L (7-52); Albumin 4.3 g/dL (3.5-5.7); Albumin/Globulin Ratio 1.4 (1.1-2.2); Alkaline Phosphatase 61 Units/L (34-104); Aspartate Amino Transferase 25 Units/L (13-39); BUN/Creatinine Ratio 20 (6-26); Bilirubin,Total 0.7 mg/dL (0.3-1.0); Blood Urea Nitrogen 16 mg/dL (8-23); Calcium 9.9 mg/dL (8.6-10.3); Carbon Dioxide 27 mEq/L (23-29); Chloride 104 mEq/L (98-107); Glucose 88 mg/dL (70-105); Magnesium 2.2 mg/dL (1.6-2.6); Osmolality,Calculated 289 (280-300); Potassium 4.3 mEq/L (3.5-5.1); Sodium 139 mEq/L (136-145); Thyroid Stimulating Hormone 2.878 mcIU/mL (0.340-5.600); Total Protein 7.3 g/dL (6.4-8.9); Troponin I < 0.03 ng/mL (< 0.04); eGFR For African Americans > 60 (> 60); eGFR For Non-African Americans > 60 (> 60)
[2020-12-03] MEDS ORDERED: Naloxone 0.4 MG/ML INJ IVP PRN (17:47)
[2020-12-03] MEDS ORDERED: Acetaminophen 325 MG TABLET PO PRN (17:47)
[2020-12-03] MEDS ORDERED: Melatonin 3 MG TABLET PO PRN (17:47)
[2020-12-03] MEDS ORDERED: Ondansetron 4 MG/2 ML VIAL IVP PRN (17:47)
[2020-12-03] MEDS ORDERED: Aspirin 325 MG TABLET PO ONE (17:57)
[2020-12-03] MEDS ORDERED: Perflutren Lipid Microsphere 1.3 ML in 0.9 % Sodium Chloride 8.7 ML IVP PRN (17:58)
[2020-12-03] MEDS ORDERED: traZODone 50 MG TABLET PO PRN (19:19)
[2020-12-03] MEDS: carvediloL 6.25 MG TABLET PO SCH (19:54)
[2020-12-03 21:35] LABS: Estimated Average Glucose 105 mg/dl; Hemoglobin A1C 5.3 %
[2020-12-03 21:43] LABS: Chol/HDL Ratio 3.2 (0-4.9); Cholesterol 172 mg/dL (< 200); HDL Cholesterol 53 mg/dL (40-59); LDL Cholesterol,Calculated 97 mg/dL (< 100); Triglycerides 111 mg/dL (< 150)
[2020-12-03 21:44] LABS: Troponin I < 0.03 ng/mL (< 0.04)
[2020-12-04 00:33] LABS: Hematocrit 37.7 % (35.3-44.9); Hemoglobin 13.1 g/dL (11.5-15.4); Mean Corpuscular HGB Conc 34.7 g/dL (31.6-35.5); Mean Corpuscular Hemoglobin 33.7 pg (28.0-33.3); Mean Corpuscular Volume 96.9 fL (83.0-100.0); Mean Platelet Volume 10.7 fL (9.4-12.4); Platelet Count 202 K/mcL (140-400); Red Blood Count 3.89 M/mcL (3.82-4.97); Red Cell Distribution Width 11.6 % (11.5-14.5); White Blood Count 6.2 K/mcL (4.3-11.1)
[2020-12-04 00:38] LABS: INR 1.1; Prothrombin Time 11.9 Seconds (9.4-12.1)
[2020-12-04 00:40] LABS: Activated Partial Thrombo Time 35.2 Seconds (26.0-36.0)
[2020-12-04 01:50] LABS: BUN/Creatinine Ratio 21 (6-26); Blood Urea Nitrogen 22 mg/dL (8-23); Calcium 9.7 mg/dL (8.6-10.3); Carbon Dioxide 27 mEq/L (23-29); Chloride 107 mEq/L (98-107); Glucose 127 mg/dL (70-105); Magnesium 2.4 mg/dL (1.6-2.6); Osmolality,Calculated 297 (280-300); Phosphorous 3.8 mg/dL (2.7-4.5); Potassium 3.8 mEq/L (3.5-5.1); Sodium 141 mEq/L (136-145); eGFR For African Americans > 60 (> 60); eGFR For Non-African Americans 51 (> 60)
[2020-12-04] MEDS: *HR* Enoxaparin 40 MG/0.4 ML SYRINGE SQ SCH (05:06)
[2020-12-04] MEDS: Aspirin Enteric Coated 81 MG Tablet PO SCH (08:17)
[2020-12-04] MEDS: carvediloL 6.25 MG TABLET PO SCH ×2 (08:18→18:26)
[2020-12-04] MEDS ORDERED: Aspirin 81 MG TAB.CHEW PO SCH (09:00)
[2020-12-05] MEDS: *HR* Enoxaparin 40 MG/0.4 ML SYRINGE SQ SCH (06:22)
[2020-12-05 07:59] LABS: BUN/Creatinine Ratio 27 (6-26); Blood Urea Nitrogen 26 mg/dL (8-23); Calcium 9.7 mg/dL (8.6-10.3); Carbon Dioxide 28 mEq/L (23-29); Chloride 103 mEq/L (98-107); Glucose 91 mg/dL (70-105); Osmolality,Calculated 288 (280-300); Potassium 4.1 mEq/L (3.5-5.1); Sodium 137 mEq/L (136-145); eGFR For African Americans > 60 (> 60); eGFR For Non-African Americans 57 (> 60)
[2020-12-05] MEDS: carvediloL 6.25 MG TABLET PO SCH (08:57)
[2020-12-05] MEDS: Aspirin Enteric Coated 81 MG Tablet PO SCH (08:57)
[2020-12-05] MEDS ORDERED: Heparin 1,000 UNITS/500 mL 500 ML ONE (13:08)
[2020-12-05] MEDS ORDERED: *HR* Heparin 10,000 UNIT/10 ML VIAL ONE (13:08)
[2020-12-05] MEDS ORDERED: Nitroglycerin 1,000 MCG/5 ML VIAL IV ONE (13:09)
[2020-12-05] MEDS ORDERED: ISOVUE-370 200 ML INFUS..BTL ONE (13:09)
[2020-12-05] MEDS ORDERED: 0.9 % Sodium Chloride 1,000 ML ONE ×2 (13:09→14:45)
[2020-12-05] MEDS ORDERED: *HR* Midazolam HCl 2 MG/2 ML VIAL ONE (14:44)
[2020-12-05] MEDS ORDERED: *HR* FentaNYL (PF) 100 MCG/2 ML VIAL ONE (14:44)
[2020-12-05] MEDS ORDERED: carvediloL 6.25 MG TABLET PO SCH (17:00)
[2020-12-05 17:46] VITALS: BP 97/63
[2020-12-05 18:27] VITALS: PULSE 51; TEMP 97.9; O2SAT 93
== END 2020-12-05 18:58 | disposition home or self-care (01) ==
LOC: SUATTDRO → EMEROOARM 12:52 → 3ANU 12:52 → SUATTDRO 17:54 → 3ANU 18:56
PROVIDERS: ADMIT Internal Medicine; ATTEND Family Medicine